=== PATIENT | female | born 1945 | race Caucasian/White ===

== ENCOUNTER 2018-01-12 06:49 | Emergency (ER) | payer MEDICARE ==
[2018-01-12 07:49] LABS: ABS Basophils 0.1 10^3/ul (0-0.2); ABS Eosinophils 0.2 10^3/ul (0-0.6); ABS Lymphocytes 1.2 10^3/ul (1.0-4.8); ABS Monocytes 0.3 10^3/ul (0-0.8); ABS Neutrophils 5.3 10^3/ul (1.5-7.7); ABS Nucleated RBC 0 10^3/ul; Eosinophil % 3.4 % (0-6); Hematocrit 46 % (35-47); Hemoglobin 15.8 g/dl (12.0-16.0); Lymphocyte % 16.4 % (25-47); Mean Corpuscular HGB Conc 35 g/dl (31-36); Mean Corpuscular Hemoglobin 32 pg (27-31); Mean Corpuscular Volume 92 fL (80-97); Mean Platelet Volume 8.5 um3 (7.4-10.4); Nucleated Red Blood Cells % 0.1; Platelet Count 197 10^3/ul (150-450); Red Blood Count 4.97 10^6/ul (4.00-5.40); Red Cell Distribution Width 13 % (10.5-15); White Blood Count 7.1 10^3/ul (3.5-10.8)
[2018-01-12 08:08] LABS: EGFR Non-African American 71.1 (>60)
--- NOTE | 2018-01-12 08:11 | RAD ---
HISTORY: Chest pain COMPARISONS: February 03, 2013 VIEWS: 1: frontal portable view of the chest at 7:47 AM FINDINGS: LINES AND TUBES: None. CARDIOMEDIASTINAL SILHOUETTE: The cardiomediastinal silhouette is normal for portable technique. PLEURA: The costophrenic angles are sharp. No pleural abnormalities are noted. LUNG PARENCHYMA: The lungs are clear. ABDOMEN: The upper abdomen is clear. There is no subphrenic gas. BONES AND SOFT TISSUES: No bone or soft tissue abnormalities are noted. IMPRESSION: NO ACTIVE CARDIOPULMONARY DISEASE.
[2018-01-12 12:57] VITALS: BP 123/67
--- NOTE | 2018-01-12 16:57 | ED ---
Kael Culp Angela, scribed for Sebastian Hsieh MD on 01/12/18 at 0734 . Hypertension - HPI Summary HPI Summary: This pt is a 73 y/o female presenting to [facility] for worsening cough and SOB, and hypertension noted today. Pt reports she has felt SOB for the past week now. She states her coughing has been worsening and is now productive with yellow sputum. This morning at 05:30 she woke up feeling heart palpitations and SOB. She also notes loose stools began last night. Additionally she reports pain on her left shoulder, but she attributes it to her coughing and recent heavy lifting, stating "it feels like all muscle." Pt has hx of fibromyalgia and "it always hurts all over." Her PCP is in [facility]. Pt is not on antihypertensive medications. PMHx includes migraine, arthritis, fibromyalgia, hypothyroidism. She is on hypothyroid medications. - History of Current Complaint Chief Complaint: EDHypertension Stated Complaint: CHEST PAIN Time Seen by Provider: 01/12/18 07:07 Hx Obtained From: Patient Onset/Duration: Started Hours Ago, Still Present Timing: Lasting Hours Aggravating Factor(s): Nothing Alleviating Factor(s): Nothing Associated Signs & Symptoms: SOB, Other: - POS: left shoulder pain, palpitations , cough - Allergies/Home Medications Allergies/Adverse Reactions: Allergies Allergy/AdvReac Type Severity Reaction Status Date / Time ciprofloxacin Allergy Severe Difficulty Verified 01/12/18 07:31 Breathing guaifenesin Allergy Severe Difficulty Verified 01/12/18 07:31 Breathing magnesium salicylate Allergy Severe Difficulty Verified 01/12/18 07:32 Breathing Penicillins Allergy Severe Difficulty Verified 01/12/18 07:34 Breathing Sulfa (Sulfonamide Allergy Severe Difficulty Verified 01/12/18 07:34 Antibiotics) Breathing Iodinated Contrast- Oral and Allergy Intermediate Unknown Verified 01/12/18 07: 36 IV Dye Reaction Details ondansetron Allergy Intermediate Itching Verified 01/12/18 07:35 ASPARTAME Allergy Severe Difficulty Uncoded 01/12/18 07:30 Breathing ASPIRIN Allergy Severe Difficulty Uncoded 01/12/18 07:30 Breathing NSAIDS Allergy Severe Difficulty Uncoded 01/12/18 07:33 Breathing Home Medications: Home Medications Levothyroxine TAB* [Synthroid TAB*] 88 mcg PO DAILY 01/12/18 [History Confirmed 01/12/18] Multivitamins/Minerals TAB* [Theragran/minerals TAB*] 1 tab PO DAILY 01/12/18 [ History Confirmed 01/12/18] Mv-Mn/C/Glutamin/Lysin/Gowx698 [Airborne] 1 zane PO DAILY PRN 01/12/18 [History Confirmed 01/12/18] Zyflamend 1 tab PO BID 01/12/18 [History Confirmed 01/12/18] PMH/Surg Hx/FS Hx/Imm Hx Endocrine/Hematology History: Reports: Hx Thyroid Disease - HYPO Denies: Hx Anticoagulant Therapy, Hx Diabetes Cardiovascular History: Reports: Hx Hypercholesterolemia, Hx Syncope Denies: Hx Hypertension, Hx Pacemaker/ICD Respiratory History: Reports: Hx Asthma, Other Respiratory Problems/Disorders - URI in April 2012 Denies: Hx Chronic Obstructive Pulmonary Disease (COPD) GI History: Reports: Hx Gastroesophageal Reflux Disease, Other GI Disorders - diarrhea and nausea, no emesis History: Reports: Hx Kidney Infection - many over the years and as a child Denies: Hx Renal Disease Musculoskeletal History: Reports: Hx Arthritis, Hx Fibromyalgia Sensory History: Reports: Hx Contacts or Glasses, Hx Hearing Problem - no high pitched hearing tones Opthamlomology History: Reports: Hx Contacts or Glasses Neurological History: Reports: Hx Migraine Denies: Hx Dementia, Hx Seizures Psychiatric History: Denies: Hx Substance Abuse - Surgical History Surgery Procedure, Year, and Place: HYSTERECTOMY, APPENDECTOMY, Tubal Ligation, left breast biopsy Hx Anesthesia Reactions: No - Immunization History Date of Tetanus Vaccine: yes unsure of the date Date of Influenza Vaccine: allergic Infectious Disease History: No Infectious Disease History: Denies: Hx Clostridium Difficile, Hx Hepatitis, Hx Human Immunodeficiency Virus (HIV), Hx Shingles, Hx Tuberculosis, Traveled Outside the [place] in Last 30 Days - Family History Known Family History: Positive: Hypertension - Father Family History: Mother and father: CVAs - Social History Alcohol Use: None Substance Use Type: Reports: None Smoking Status (MU): Never Smoked Tobacco Review of Systems Negative: Fever, Chills Cardiovascular: Other - hypertension Positive: Palpitations Positive: Shortness Of Breath, Cough Gastrointestinal: Other - Loose stools Musculoskeletal: Other - left shoulder pain All Other Systems Reviewed And Are Negative: Yes Physical Exam - Summary Physical Exam Summary: Appearance: The patient is well-nourished in no acute distress and in no acute pain. Skin: The skin is warm and dry and skin color reflects adequate perfusion. HEENT: The head is normocephalic and atraumatic. The pupils are equal and reactive. The conjunctivae are clear and without drainage. Nares are patent and without drainage. Mouth reveals moist mucous membranes and the throat is without erythema and exudate. The external ears are intact. The ear canals are patent and without drainage. The tympanic membranes are intact. Neck: the neck is supple with full range of motion and non-tender. There are no carotid bruits. There is no neck vein distension. Respiratory: Chest is non-tender. Lungs are clear to auscultation and breath sounds are symmetrical and equal. Cardiovascular: Heart is regular rate and rhythm. There is no murmur or rub auscultated. There is no peripheral edema and pulses are symmetrical and equal. Abdomen: The abdomen is soft and non-tender. There are normal bowel sounds heard in all four quadrants and there is no organomegaly palpated. Musculoskeletal: There is no back tenderness noted. Extremities are non-tender with full range of motion. There is good capillary refill. There is no peripheral edema or calf tenderness elicited. Neurological: Patient is alert and oriented to person, place and time. Psychiatric: The patient has an appropriate affect and does not exhibit any anxiety or depression. Triage Information Reviewed: Yes Vital Signs On Initial Exam: Initial Vitals Temp Pulse Resp BP Pulse Ox 98.3 F 78 15 200/108 95 01/12/18 06:55 01/12/18 06:55 01/12/18 06:55 01/12/18 06:55 01/12/18 06:55 Vital Signs Reviewed: Yes Diagnostics - Vital Signs Vital Signs Temp Pulse Resp BP Pulse Ox 01/12/18 06:55 98.3 F 78 15 200/108 95 - Laboratory Lab Results: Lab Results 01/12/18 01/12/18 01/12/18 Range/Units 07:35 07:35 07:35 WBC 7.1 (3.5-10.8) 10^3/ul RBC 4.97 (4.00-5.40) 10^6/ul Hgb 15.8 (12.0-16.0) g/dl Hct 46 (35-47) % MCV 92 (80-97) fL MCH 32 H (27-31) pg MCHC 35 (31-36) g/dl RDW 13 (10.5-15) % Plt Count 197 (150-450) 10^3/ul MPV 8.5 (7.4-10.4) um3 Neut % (Auto) 74.6 (38-83) % Lymph % (Auto) 16.4 L (25-47) % Alpine % (Auto) 4.8 (0-7) % Eos % (Auto) 3.4 (0-6) % Baso % (Auto) 0.8 (0-2) % Absolute Neuts (auto) 5.3 (1.5-7.7) 10^3/ul Absolute Lymphs (auto) 1.2 (1.0-4.8) 10^3/ul Absolute Monos (auto) 0.3 (0-0.8) 10^3/ul Absolute Eos (auto) 0.2 (0-0.6) 10^3/ul Absolute Basos (auto) 0.1 (0-0.2) 10^3/ul Absolute Nucleated RBC 0 10^3/ul Nucleated RBC % 0.1 D-Dimer, Quantitative 321 H (Less Than 230) ng/mL Sodium 136 (135-145) mmol/L Potassium 4.2 (3.5-5.0) mmol/L Chloride 99 L (101-111) mmol/L Carbon Dioxide 28 (22-32) mmol/L Anion Gap 9 (2-11) mmol/L BUN 12 (6-24) mg/dL Creatinine 0.79 (0.51-0.95) mg/dL Est GFR ( Amer) 86.1 (>60) Est GFR (Non-Af Amer) 71.1 (>60) BUN/Creatinine Ratio 15.2 (8-20) Glucose 260 H (70-100) mg/dL Lactic Acid (0.5-2.0) mmol/L Calcium 9.6 (8.6-10.3) mg/dL Total Bilirubin 0.40 (0.2-1.0) mg/dL AST 17 (13-39) U/L ALT 21 (7-52) U/L Alkaline Phosphatase 54 (34-104) U/L Troponin I 0.00 (<0.04) ng/mL B-Natriuretic Peptide ( - 100) pg/mL Total Protein 7.3 (6.4-8.9) g/dL Albumin 4.5 (3.2-5.2) g/dL Globulin 2.8 (2-4) g/dL Albumin/Globulin Ratio 1.6 (1-3) TSH 6.54 H (0.34-5.60) mcIU/mL 01/12/18 01/12/18 01/12/18 Range/Units 07:35 07:35 10:19 WBC (3.5-10.8) 10^3/ul RBC (4.00-5.40) 10^6/ul Hgb (12.0-16.0) g/dl Hct (35-47) % MCV (80-97) fL MCH (27-31) pg MCHC (31-36) g/dl RDW (10.5-15) % Plt Count (150-450) 10^3/ul MPV (7.4-10.4) um3 Neut % (Auto) (38-83) % Lymph % (Auto) (25-47) % Alpine % (Auto) (0-7) % Eos % (Auto) (0-6) % Baso % (Auto) (0-2) % Absolute Neuts (auto) (1.5-7.7) 10^3/ul Absolute Lymphs (auto) (1.0-4.8) 10^3/ul Absolute Monos (auto) (0-0.8) 10^3/ul Absolute Eos (auto) (0-0.6) 10^3/ul Absolute Basos (auto) (0-0.2) 10^3/ul Absolute Nucleated RBC 10^3/ul Nucleated RBC % D-Dimer, Quantitative (Less Than 230) ng/mL Sodium (135-145) mmol/L Potassium (3.5-5.0) mmol/L Chloride (101-111) mmol/L Carbon Dioxide (22-32) mmol/L Anion Gap (2-11) mmol/L BUN (6-24) mg/dL Creatinine (0.51-0.95) mg/dL Est GFR ( Amer) (>60) Est GFR (Non-Af Amer) (>60) BUN/Creatinine Ratio (8-20) Glucose (70-100) mg/dL Lactic Acid 2.0 (0.5-2.0) mmol/L Calcium (8.6-10.3) mg/dL Total Bilirubin (0.2-1.0) mg/dL AST (13-39) U/L ALT (7-52) U/L Alkaline Phosphatase (34-104) U/L Troponin I 0.00 (<0.04) ng/mL B-Natriuretic Peptide 53 ( - 100) pg/mL Total Protein (6.4-8.9) g/dL Albumin (3.2-5.2) g/dL Globulin (2-4) g/dL Albumin/Globulin Ratio (1-3) TSH (0.34-5.60) mcIU/mL Result Diagrams: 01/12/18 07:35 01/12/18 07:35 Lab Statement: Any lab studies that have been ordered have been reviewed, and results considered in the medical decision making process. - Radiology Chest XR Xray Interpretation: No Acute Changes - IMPRESSION: No active cardiopulmonary disease. Dr. Hsieh has reviewed this report. Radiology Interpretation Completed By: Radiologist - EKG 06:57 Cardiac Rate: NL - at 74 bpm EKG Rhythm: Sinus Rhythm EKG Interpretation: LAD. EKG Comparison: No Significant Change - from prior on 02/05/14. 10:44 Cardiac Rate: NL - at 78 bpm EKG Rhythm: Sinus Rhythm EKG Interpretation: LAD. EKG Comparison: No Significant Change - unchanged from prior EKG at 06:57 today. Hypertension Course/Dx - Course Course Of Treatment: Ms. Anne presented with a concern for a cough that has been going on for couple weeks and has been getting steadily worse. She states that there is only one antibiotic, cefuroxime, but she is able to tolerate and therefore her PCP tends to start it for her early when she has a productive cough. She also has vague complaints of diffuse pains and chest pains and shortness of breath. Her workup here was negative aside from a very slightly elevated d-dimer which is nonspecific. - Diagnoses Provider Diagnoses: Bronchitis, Chest pain Discharge - Sign-Out/Discharge Documenting (check all that apply): Discharge/Admit/Transfer - Discharge - Discharge Plan Condition: Stable Disposition: HOME Prescriptions: ceFUROXime TAB(*) [Ceftin TAB 250 MG(*)] 250 mg PO BID #20 tab Patient Education Materials: Chest Pain (ED), Acute Bronchitis (ED) Referrals: Neal ARITA,Riley Rosales [Primary Care Provider] - Additional Instructions: Please follow up with your primary care provider in 2-3 days. RETURN TO THE ED FOR ANY WORSENING SYMPTOMS. - Billing Disposition and Condition Condition: STABLE Disposition: Home The documentation as recorded by the Kael august Angela accurately reflects the service I personally performed and the decisions made by me, Sebastian Hsieh MD.
== END 2018-01-12 12:55 | disposition home or self-care (01) ==
LOC: ED 06:49
DX: J40 Bronchitis, not specified as acute or chronic (principal); R07.9 Chest pain, unspecified; R06.02 Shortness of breath; M25.512 Pain in left shoulder; R00.2 Palpitations; R05 Cough; Z88.0 Allergy status to penicillin; Z88.8 Allergy status to other drugs, medicaments and biological substances
CPT/HCPCS: 36415; 71045; 80053; 83605; 83880; 84443; 84484; 85025; 85379; 93005; 99283

== ENCOUNTER 2018-08-27 07:21 | Emergency (ER) | payer MEDICARE ==
--- NOTE | 2018-08-27 07:58 | ED ---
Complex/Multi-Sys Presentation - HPI Summary HPI Summary: A 73 y/o F presents to ED with c/o nausea and diarrhea onset last night. This morning at 0430, she was in bed and bent over to greens picker her dog, when she suddenly felt as though she might pass out, and had some mild room spinning. Pt has PMHx: vertigo, with her last episode a few months ago. 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 Associated sx: mild CP on L-side and radiating to her L-shoulder. She states it feels muscular, it does not feel sharp or tight. She also has mild abd pain related to being bloated. Denies: vomiting, ROY, fever, cough, bloody stool. Denies PMHx: GI bleed, ulcers. Her PCP is in [place]. Surgeries include an appy and partial hysterectomy. Her gallbladder and ovaries are intact. No C- sections. She did not get a flu shot this year. Vitals in room: HR: 74 bpm; BP: 214/114. She is not on medication for HTN, and states it is normally OK. 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 Negative: Headache, Cough, Vomiting, Fever, Other - pos : L shoulder pain; bloating. neg: bloody stool - Allergies/Home Medications Allergies/Adverse Reactions: Allergies Allergy/AdvReac Type Severity Reaction Status Date / Time ciprofloxacin Allergy Severe Difficulty Verified 08/27/18 07:28 Breathing guaifenesin Allergy Severe Difficulty Verified 08/27/18 07:28 Breathing magnesium salicylate Allergy Severe Difficulty Verified 08/27/18 07:28 Breathing Penicillins Allergy Severe Difficulty Verified 08/27/18 07:28 Breathing Sulfa (Sulfonamide Allergy Severe Difficulty Verified 08/27/18 07:28 Antibiotics) Breathing Iodinated Contrast- Oral and Allergy Intermediate Unknown Verified 08/27/18 07: 28 IV Dye Reaction Details ondansetron Allergy Intermediate Itching Verified 08/27/18 07:28 ASPARTAME Allergy Severe Difficulty Uncoded 08/27/18 07:28 Breathing ASPIRIN Allergy Severe Difficulty Uncoded 08/27/18 07:28 Breathing NSAIDS Allergy Severe Difficulty Uncoded 08/27/18 07:28 Breathing PMH/Surg Hx/FS Hx/Imm Hx Previously Healthy: No Endocrine/Hematology History: Reports: Hx Thyroid Disease - HYPO Denies: Hx Anticoagulant Therapy, Hx Diabetes Cardiovascular History: Reports: Hx Hypercholesterolemia, Hx Syncope Denies: Hx Hypertension, Hx Pacemaker/ICD Respiratory History: Reports: Hx Asthma, Other Respiratory Problems/Disorders Denies: Hx Chronic Obstructive Pulmonary Disease (COPD) GI History: Reports: Hx Gastroesophageal Reflux Disease, Other GI Disorders - diarrhea and nausea, no emesis History: Reports: Hx Kidney Infection - many over the years and as a child Denies: Hx Renal Disease Musculoskeletal History: Reports: Hx Arthritis, Hx Fibromyalgia Sensory History: Reports: Hx Contacts or Glasses, Hx Hearing Problem - no high pitched hearing tones Opthamlomology History: Reports: Hx Contacts or Glasses Neurological History: Reports: Hx Migraine Denies: Hx Dementia, Hx Seizures Psychiatric History: Denies: Hx Substance Abuse - Surgical History Surgery Procedure, Year, and Place: HYSTERECTOMY, APPENDECTOMY, Tubal Ligation, left breast biopsy Hx Anesthesia Reactions: No - Immunization History Date of Tetanus Vaccine: yes unsure of the date Date of Influenza Vaccine: allergic Infectious Disease History: No Infectious Disease History: Denies: Hx Clostridium Difficile, Hx Hepatitis, Hx Human Immunodeficiency Virus (HIV), Hx Shingles, Hx Tuberculosis, Traveled Outside the [place] in Last 30 Days - Family History Known Family History: Positive: Hypertension - Father Family History: Mother and father: CVAs - Social History Occupation: Retired Lives: With Family Alcohol Use: None Hx Substance Use: No Substance Use Type: Reports: None Hx Tobacco Use: No Smoking Status (MU): Never Smoked Tobacco Review of Systems Negative: Fever Positive: Chest Pain Negative: Cough Positive: Abdominal Pain - due to bloatedness, Diarrhea, Nausea. Negative: Vomiting, Other - neg: bloody stool Positive: no symptoms reported Musculoskeletal: Other - pos: L shoulder pain Skin: Negative Neurological: Other - pos: room-spinning dizziness Positive: Syncope - near-syncope. Negative: Headache Psychological: Normal All Other Systems Reviewed And Are Negative: Yes Physical Exam - Summary Physical Exam Summary: Appearance: Ill-appearing, moderate pain distress, obese Skin: Warm, color reflects adequate perfusion, dry Head: Normal Head/Face inspection, atraumatic Eyes: Conjunctiva clear, PERRL, EOMI, no nystagmus ENT: Normal inspection, TM's clear, Pharynx clear Neck: Supple, no nodes, no JVD Respiratory: Lungs clear, normal breath sounds, no respiratory distress Cardio: RRR, No murmur, pulses normal, brisk capillary refill Abdomen: Soft, mild diffuse abd tenderness, no guarding, no rebound, no masses, non-distended Bowel sounds: Present Musculoskeletal: Strength Intact/ROM intact, no calf tenderness, no edema. Psychological: Normal Neuro: Alert, muscle tone normal, no focal deficit Triage Information Reviewed: Yes Vital Signs On Initial Exam: Initial Vitals Temp Pulse Resp BP Pulse Ox 97.3 F 72 16 211/105 94 08/27/18 07:25 08/27/18 07:25 08/27/18 07:25 08/27/18 07:25 08/27/18 07:25 Vital Signs Reviewed: Yes Diagnostics - Vital Signs Vital Signs Temp Pulse Resp BP Pulse Ox 08/27/18 07:25 97.3 F 72 16 211/105 94 - Laboratory Result Diagrams: 08/27/18 08:58 08/27/18 08:58 Lab Statement: Any lab studies that have been ordered have been reviewed, and results considered in the medical decision making process. - CT A/P CT CT Interpretation Completed By: Radiologist Summary of CT Findings: IMPRESSION: #. No etiology for diarrhea evident. #. Post appendectomy. #. No acute abdominal pelvic pathologic process evident. ED provider has reviewed this report. - EKG 0754 Cardiac Rate: NL - 66 bpm EKG Rhythm: Sinus Rhythm ST Segment: Non-Specific Ectopy: None EKG Comparison: No Significant Change - compared with EKG on 01/12/18. Summary of EKG Findings: An EKG at 0754 reveals NSR at 66 bpm, 1st degree AV block, LAD, LBBB. No acute changes. Re-Evaluation - Re-Evaluation 1 Re-Evaluation Time: 10:28 Change: Improved Comment: Pt is not having CP, SOB, nor diarrhea. BP at home was 210/110. She took it due to the vertigo sx (and her has HTN, which is why they had a home cuff.) She denies DM. At bedside, her BP is 154/90 2 Re-Evaluation Time: 11:33 Change: Unchanged Comment: Discussing plans to discharge. BP is 141/91. She denies ROY, dizziness, chest pain. Complex Multi-Symp Course/Dx Course Of Treatment: Pt is a 73 y/o F presenting with nausea and diarrhea onset last night. This morning at 0430, she was in bed and bent over to greens picker her dog, when she suddenly felt as though she might pass out, and had some mild room spinning. Pt has PMHx: vertigo, with her last episode a few months ago. 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 Associated sx: mild CP on L-side and radiating to her L- shoulder. The CP described as muscular, denies feeling sharp or tight. She also has mild abd pain related to being bloated. Denies: vomiting, ROY, fever, cough, bloody stool. Denies PMHx: GI bleed, ulcers. Her PCP is in [place]. She did not get a flu shot this year. Allergies noted, high blood pressure noted. Pt medications reviewed this visit. Lab work shows elevated RBC, Hgb, Hct, BUN/C ratio: 21.0, and glucose: 326. UA results shows 3+ glucose. A/P CT shows "No etiology for diarrhea evident. Post appendectomy. No acute abdominal pelvic pathologic process evident." An EKG at 0754 reveals NSR at 66 bpm, 1st degree AV block, LAD, LBBB. No acute changes. No changes compared with EKG on . Consulted with Dr. Peralta, hospitalist, at 1035, who says she is OK for D/ C and recommends starting her on Amlodipine 10mg QD, Metformin 500mg BID, Diabeta 5mg QD. And to f/u with PCP in 4 days. - Diagnoses Provider Diagnoses: Diarrhea, Uncontrolled blood glucose, Polycythemia, Elevated BP without diagnosis of hypertension, Diabetes mellitus, new onset - Physician Notifications Discussed Care Of Patient With: Valentin Peralta - hospitalist Time Discussed With Above Provider: 10:40 Instructed by Provider To: Other - Patient is OK for discharge. Recommend starting her on HTN and DM medications: Amlodipine 10mg QD, Metformin 500mg BID , Diabeta 5mg QD. F/u in 4 days with PCP. Discharge - Sign-Out/Discharge Documenting (check all that apply): Patient Departure - D/C Patient Received Moderate/Deep Sedation with Procedure: No - Discharge Plan Condition: Stable Disposition: HOME Prescriptions: amLODIPine TAB* [Norvasc 5 mg TAB*] 10 mg PO DAILY #30 tab glyBURIDE TAB* [Diabeta TAB*] 5 mg PO DAILY #30 tab metFORMIN* [Glucophage 500 MG TAB *] 500 mg PO BID #60 tab Patient Education Materials: Type 2 Diabetes in Adults: New Diagnosis (ED), Acute Diarrhea (ED), Hypertension in the Older Adult (ED) Referrals: [facility] [Outside] - 2 Days Session Abelardo DUBOSE [Primary Care Provider] - As Soon As Possible Additional Instructions: RETURN TO THE EMERGENCY DEPARTMENT FOR CHANGING OR WORSENING SYMPTOMS. Your blood pressure reading today was 214/114, which is HYPERTENSIVE. Follow-up with bAelardo Mosquera, your primary care provider, within 4 weeks for blood pressure readings and further evaluation. - Billing Disposition and Condition Condition: STABLE Disposition: Home - Attestation Statements Document Initiated by Geraldoibe: Yes Documenting Scribe: Jerilyn Casillas Provider For Whom Scribe is Documenting (Include Credential): Dr. Kateryna Singh MD Scribe Attestation: Jerilyn Culp scribed for Dr. Kateryna Singh MD on 08/31/18 at 2314. Scribe Documentation Reviewed: Yes Provider Attestation: The documentation as recorded by the Jerilyn august accurately reflects the service I personally performed and the decisions made by , Dr. Kateryna Singh MD Status of Scribe Document: Viewed
[2018-08-27 09:04] LABS: Urine Appearance Clear; Urine Bilirubin Negative (Negative); Urine Blood Negative (Negative); Urine Color Colorless; Urine Glucose 3+(>=500 mg/dL) (Negative); Urine Ketones Negative (Negative); Urine Nitrite Negative (Negative); Urine Protein Negative (Negative); Urine Specific Gravity 1.002 (1.010-1.030); Urine Urobilinogen Negative (Negative)
[2018-08-27 09:23] LABS: ABS Basophils 0.1 10^3/ul (0-0.2); ABS Eosinophils 0.1 10^3/ul (0-0.6); ABS Lymphocytes 1.1 10^3/ul (1.0-4.8); ABS Monocytes 0.2 10^3/ul (0-0.8); ABS Neutrophils 5.5 10^3/ul (1.5-7.7); ABS Nucleated RBC 0 10^3/ul; Eosinophil % 1.5 %; Hematocrit 50 % (35-47); Hemoglobin 17.1 g/dl (12.0-16.0); Lymphocyte % 15.3 %; Mean Corpuscular HGB Conc 34 g/dl (31-36); Mean Corpuscular Hemoglobin 31 pg (27-31); Mean Corpuscular Volume 92 fL (80-97); Mean Platelet Volume 8.8 fL (7.4-10.4); Nucleated Red Blood Cells % 0; Platelet Count 201 10^3/ul (150-450); Red Blood Count 5.44 10^6/ul (4.00-5.40); Red Cell Distribution Width 13 % (10.5-15)
[2018-08-27 09:35] LABS: Albumin 4.7 g/dL (3.2-5.2); Albumin/Globulin Ratio 1.6 (1-3); C Reactive Protein 3.5 mg/L (<8.01); Calcium 9.8 mg/dL (8.6-10.3); EGFR African American 83.6 (>60); EGFR Non-African American 69.1 (>60); Globulin 2.9 g/dL (2-4); Magnesium 1.9 mg/dL (1.9-2.7); Potassium 4.2 mmol/L (3.5-5.0); Total Bilirubin 0.5 mg/dL (0.2-1.0); Total Protein 7.6 g/dL (6.4-8.9)
[2018-08-27 09:37] LABS: INR 0.89 (0.77-1.02)
[2018-08-27 09:38] LABS: Activated Partial Thrombo Time 31.3 seconds (26.0-36.3)
[2018-08-27 11:51] VITALS: BP 141/91
== END 2018-08-27 11:50 | disposition home or self-care (01) ==
LOC: ED 07:21
DX: R19.7 Diarrhea, unspecified (principal); E11.9 Type 2 diabetes mellitus without complications; R11.0 Nausea; Z88.0 Allergy status to penicillin; Z88.6 Allergy status to analgesic agent; K21.9 Gastro-esophageal reflux disease without esophagitis; R07.9 Chest pain, unspecified; R55 Syncope and collapse; D75.1 Secondary polycythemia; R03.0 Elevated blood-pressure reading, without diagnosis of hypertension
CPT/HCPCS: 36415; 71045; 74176; 80053; 81003; 82150; 82550; 83036; 83605; 83690; 83735; 83880; 84484; 85025; 85610; 85730; 86140; 93005; 99283

== ENCOUNTER 2018-10-15 12:34 | Inpatient (IN) | payer MEDICARE ==
--- NOTE | 2018-10-15 15:09 | ED ---
Complex/Multi-Sys Presentation - HPI Summary HPI Summary: 73 [facility] F [facility] accompanied by complains of lump on external right labia that began 4-5 days ago and fever that began yesterday. The patient rates the pain 3/10 in severity. Symptoms aggravated by nothing. Symptoms alleviated by nothing. Patient reports headache. She denies decreased appetite, abnormal bowel movements, dark stools, dizziness, bilateral lower extremity edema. Patient was referred to ED from PCP to obtain cultures and to be monitored in case she needs antibiotics. Patient has hx allergies to multiple antibiotics. - History Of Current Complaint Chief Complaint: EDGeneral Time Seen by Provider: 10/15/18 14:56 Hx Obtained From: Patient Onset/Duration: Lasting Days - 4-5, Still Present Timing: Constant Aggravating Factor(s): Nothing Alleviating Factor(s): Nothing Associated Signs And Symptoms: Positive: Other - headache; NEGATIVE: decreased appetite, abnormal bowel movements, dark stools, dizziness, bilateral lower extremity edema. - Allergies/Home Medications Allergies/Adverse Reactions: Allergies Allergy/AdvReac Type Severity Reaction Status Date / Time ciprofloxacin Allergy Severe Difficulty Verified 10/15/18 12:41 Breathing guaifenesin Allergy Severe Difficulty Verified 10/15/18 12:41 Breathing magnesium salicylate Allergy Severe Difficulty Verified 10/15/18 12:41 Breathing Penicillins Allergy Severe Difficulty Verified 10/15/18 12:41 Breathing Sulfa (Sulfonamide Allergy Severe Difficulty Verified 10/15/18 12:41 Antibiotics) Breathing Iodinated Contrast- Oral and Allergy Intermediate Anaphylatic Verified 10/15/18 12:41 IV Dye Shock ondansetron Allergy Intermediate Itching Verified 10/15/18 12:41 aspartame Allergy Difficulty Verified 10/15/18 12:41 Breathing aspirin Allergy Difficulty Verified 10/15/18 12:41 Breathing NSAIDS (Non-Steroidal Allergy Difficulty Verified 10/15/18 12:41 Anti-Inflamma Breathing PMH/Surg Hx/FS Hx/Imm Hx Previously Healthy: No Endocrine/Hematology History: Reports: Hx Thyroid Disease - HYPO Denies: Hx Anticoagulant Therapy, Hx Diabetes Cardiovascular History: Reports: Hx Hypercholesterolemia, Hx Syncope Denies: Hx Hypertension, Hx Pacemaker/ICD Respiratory History: Reports: Hx Asthma, Other Respiratory Problems/Disorders Denies: Hx Chronic Obstructive Pulmonary Disease (COPD) GI History: Reports: Hx Gastroesophageal Reflux Disease, Other GI Disorders - diarrhea and nausea, no emesis History: Reports: Hx Kidney Infection - many over the years and as a child Denies: Hx Renal Disease Musculoskeletal History: Reports: Hx Arthritis, Hx Fibromyalgia Sensory History: Reports: Hx Contacts or Glasses, Hx Hearing Problem - no high pitched hearing tones Opthamlomology History: Reports: Hx Contacts or Glasses Neurological History: Reports: Hx Migraine Denies: Hx Dementia, Hx Seizures Psychiatric History: Denies: Hx Substance Abuse - Surgical History Surgery Procedure, Year, and Place: HYSTERECTOMY, APPENDECTOMY, Tubal Ligation, left breast biopsy Hx Anesthesia Reactions: No - Immunization History Date of Tetanus Vaccine: yes unsure of the date Date of Influenza Vaccine: allergic Infectious Disease History: No Infectious Disease History: Denies: Hx Clostridium Difficile, Hx Hepatitis, Hx Human Immunodeficiency Virus (HIV), Hx Shingles, Hx Tuberculosis, Traveled Outside the in Last 30 Days - Family History Known Family History: Positive: Hypertension - Father Family History: Mother and father: CVAs - Social History Alcohol Use: None Hx Substance Use: No Substance Use Type: Reports: None Hx Tobacco Use: No Smoking Status (MU): Never Smoked Tobacco Review of Systems Positive: Fever Gastrointestinal: Negative - Decreased appetite, abnormal bowel movements, dark stools Positive: other - lump on external right labia Negative: Edema Neurological: Negative - Dizziness All Other Systems Reviewed And Are Negative: Yes Physical Exam - Summary Physical Exam Summary: Constitutional: Somewhat obese, Well-nourished, Alert. (-) Distressed Skin: Warm, Dry HENT: Normocephalic; Atraumatic Eyes: Conjunctiva normal Neck: Musculoskeletal ROM normal neck. (-) JVD, (-) Stridor, (-) Tracheal deviation Cardio: Rhythm regular, rate normal, Heart sounds normal; Intact distal pulses; The pedal pulses are 2+ and symmetric. Radial pulses are 2+ and symmetric. Pulmonary/Chest wall: Effort normal. (-) Respiratory distress, (-) Wheezes, (-) Rales Abd: Soft, (-) tenderness, (-) Distension, (-) Guarding, (-) Rebound Musculoskeletal: (-) Edema Neuro: Alert, Oriented x3 Psych: Mood and affect Normal exam chaperoned by ADRIEL Portillo: There is erythema and swelling to right labia. There is an area of induration going down to rectum. There is significant amount of erythema at vaginal introitus, which is tender and indurated. The induration is approaching perineal region. The erythema is in direct proximity to the rectum. There is no obvious discharge, bleeding from vagina or rectum but the wound and area of induration is undescribed. There is no crepitus, obvious skin breakdown, pimple head, coalescence of where this is going. Triage Information Reviewed: Yes Vital Signs On Initial Exam: Initial Vitals Temp Pulse Resp BP Pulse Ox 99.6 F 96 16 157/85 96 10/15/18 12:35 10/15/18 12:35 10/15/18 12:35 10/15/18 12:35 10/15/18 12:35 Vital Signs Reviewed: Yes Diagnostics - Vital Signs Vital Signs Temp Pulse Resp BP Pulse Ox 10/15/18 14:25 100.6 F 93 20 125/79 100 10/15/18 12:35 99.6 F 96 16 157/85 96 - Laboratory Result Diagrams: 10/15/18 15:34 10/15/18 15:34 Lab Statement: Any lab studies that have been ordered have been reviewed, and results considered in the medical decision making process. - Radiology CXR Radiology Interpretation Completed By: Radiologist Summary of Radiographic Findings: NO EVIDENCE FOR ACUTE DISEASE. ED physician has reviewed this report. - EKG 1633 Summary of EKG Findings: Heart rate is tachycardic. Q waves inferior are old. First degree AVB is also old. Incomplete LBBB. Non STEMI. Complex Multi-Symp Course/Dx Course Of Treatment: 73 year old F from primary care provider to [facility] accompanied by complains of lump on external right labia that began 4-5 days ago and fever that began yesterday. Patient has hx allergies to multiple antibiotics. Patient meets sepsis criteria but we are consciously not giving her 30 ml/kg of fluid because her baseline health status is unlikely to tolerate that much aggressive fluid resuscitation. Spoke with nina Watkins , at 1534, who agrees to come see patient. Dr. Loredo agrees with course of treatment. He agrees to come see patient to decide what to do. Dr. Loredo thinks that patient will ultimately be admitted to hospitalist but will consult on the case. Labs were remarkable for white count 14.[address] Loredo aspirated the area and sent to culture at 1613. He recommends admission to hospitalist. Spoke with [facility]. [facility]ist, at 1630 who requests EKG to follow up with troponin. EKG shows non STEMI. CXR shows NO EVIDENCE FOR ACUTE DISEASE. The patient will be admitted to hospitalist. The patient is agreeable with this plan. - Diagnoses Provider Diagnoses: Cellulitis of perianal region - Physician Notifications Discussed Care Of Patient With: Ajay Loredo Time Discussed With Above Provider: 15:34 Instructed by Provider To: Other - Spoke with nina Watkins, who agrees to come see patient. Dr. Loredo agrees with course of treatment. He agrees to come see patient to decide what to do. Dr. Loredo thinks that patient will ultimately be admitted to hospitalist but will consult on the case. Dr. Loredo aspirated the area and sent to culture at 1613. He recommends admission to hospitalist. Spoke with Dr. [facility] hospitalist, at 1630 who requests EKG to follow up with troponin. Discharge - Sign-Out/Discharge Documenting (check all that apply): Patient Departure - Admit Patient Received Moderate/Deep Sedation with Procedure: No - Discharge Plan Condition: Fair Disposition: ADMITTED TO [facility] Referrals: Session MIGUEL-Abelardo Motley [Primary Care Provider] - - Attestation Statements Document Initiated by Geraldoibe: Yes Documenting Scribe: Patsy Vick Provider For Whom Winston is Documenting (Include Credential): Ajay Abreu MD Scribe Attestation: Patsy Culp, scribed for Ajay Abreu MD on 10/15/18 at 1829. Status of Scribe Document: Ready
[2018-10-15] MEDS ORDERED: Acetaminophen TAB* 325 MG PO ONE (15:18)
[2018-10-15] MEDS ORDERED: Cefepime(*) 1 GM in NS 0.9% 50 ML* 50 ML IVPB ONE (15:23)
[2018-10-15] MEDS ORDERED: Cefepime 1 GM in Dextrose(*) 1 GM/50 ML BAG IV ONE (15:31)
[2018-10-15 15:52] LABS: ABS Basophils 0.1 10^3/ul (0-0.2); ABS Eosinophils 0.2 10^3/ul (0-0.6); ABS Lymphocytes 1.6 10^3/ul (1.0-4.8); ABS Monocytes 0.8 10^3/ul (0-0.8); ABS Neutrophils 11.9 10^3/ul (1.5-7.7); ABS Nucleated RBC 0 10^3/ul; Eosinophil % 1.1 %; Hematocrit 43 % (33-41); Hemoglobin 14.8 g/dL (12.0-16.0); Lymphocyte % 10.7 %; Mean Corpuscular HGB Conc 34 g/dL (31-36); Mean Corpuscular Hemoglobin 31 pg (27-31); Mean Corpuscular Volume 92 fL (80-97); Mean Platelet Volume 8.9 fL (7.4-10.4); Nucleated Red Blood Cells % 0; Platelet Count 200 10^3/uL (150-450); Red Cell Distribution Width 13 % (10.5-15); White Blood Count 14.5 10^3/uL (3.5-10.8)
[2018-10-15] MEDS ORDERED: Vancomycin 1500 MG IV - x ONCE IVPB ONE ×2 (16:00)
[2018-10-15] MEDS ORDERED: Lactated Ringers 1000 ML Bag* 1,000 ML IV SCH (16:00)
[2018-10-15] MEDS ORDERED: Vancomycin(*) 1,000 MG VIAL IVPB SCH (16:00)
[2018-10-15] MEDS ORDERED: Lidocaine 1% INJ* 10 MG/ML 30 ML SDV ONE (16:01)
[2018-10-15 16:07] LABS: Activated Partial Thrombo Time 30.2 seconds (26.0-36.3); INR 1.06 (0.77-1.02)
[2018-10-15 16:14] LABS: ALT 15 U/L (7-52); AST 10 U/L (13-39); Albumin 4.3 g/dL (3.2-5.2); Albumin/Globulin Ratio 1.5 (1-3); Alkaline Phosphatase 58 U/L (34-104); Anion Gap 10 mmol/L (2-11); BUN/Creatinine Ratio 16.5 (8-20); Blood Urea Nitrogen 14 mg/dL (6-24); CO2 Carbon Dioxide 25 mmol/L (22-32); Calcium 9.4 mg/dL (8.6-10.3); Chloride 101 mmol/L (101-111); EGFR African American 79.1 (>60); EGFR Non-African American 65.4 (>60); Globulin 2.8 g/dL (2-4); Glucose 205 mg/dL (70-100); Potassium 3.9 mmol/L (3.5-5.0); Sodium 136 mmol/L (135-145); Total Protein 7.1 g/dL (6.4-8.9)
[2018-10-15] MEDS ORDERED: Lidocaine 1% INJ* 10 MG/ML 30 ML SDV INJ ONE (16:23)
[2018-10-15 16:30] LABS: Troponin I 0.09 ng/mL (<0.04)
[2018-10-15 16:42] LABS: Urine Appearance Clear; Urine Bacteria Absent (Absent); Urine Bilirubin Negative (Negative); Urine Blood 1+ (Negative); Urine Color Yellow; Urine Glucose 1+(50 mg/dL) (Negative); Urine Ketones Trace (Negative); Urine Nitrite Negative (Negative); Urine Protein Negative (Negative); Urine Red Blood Cell Trace(0-2/hpf) (Absent); Urine Specific Gravity 1.009 (1.010-1.030); Urine Urobilinogen Negative (Negative); Urine White Blood Cell Absent (Absent)
[2018-10-15] MEDS ORDERED: Gadoteridol* (CONTRAST) 279.3 MG/ML 10 ML IV ONE (17:00)
[2018-10-15] MEDS ORDERED: NS 0.9% 1000 ML** 2,000 ML IV ONE (17:47)
[2018-10-15] MEDS ORDERED: Al Hydrox/Mg Hydrox/Simet LIQ* 30 ML UDC PO PRN (18:12)
[2018-10-15] MEDS ORDERED: Vancomycin(*) 0 MG in NS 0.9% 250 ML* 250 ML IVPB SCH (19:00)
[2018-10-15] MEDS ORDERED: Vancomycin per Pharmacy* NOTE FOLLOW UP PRN (19:49)
[2018-10-15] MEDS: Enoxaparin(*) 40 MG/0.4 ML SYR SUBCUT SCH (21:01)
[2018-10-15] MEDS ORDERED: Dextrose 50% Syringe 50 ML* 25 GM/50 ML SYRINGE IV PUSH PRN (21:17)
[2018-10-15] MEDS: Cefepime 2 GM in Dextrose(*) 2 GM/50 ML BAG IV SCH (21:59)
--- NOTE | 2018-10-15 22:12 | HP ---
CC: KOBE Marroquin * HISTORY AND PHYSICAL: DATE OF ADMISSION: 10/15/18 PROVIDER: Nadege David NP PRIMARY CARE PROVIDER: KOBE Shay ATTENDING PHYSICIAN WHILE IN THE HOSPITAL: Cherie Hebert MD * (dictated by Nadege David NP) CHIEF COMPLAINT: Fever and vaginal swelling and pain. HISTORY OF PRESENT ILLNESS: Ms. Ackerman is a 73-year-old female with past medical history significant for hyperlipidemia, hypothyroid, fibromyalgia, obesity, diabetes, history of migraines, and osteoarthritis, who presented to the emergency room with complaints of progressively worsening labial swelling and pain. The patient reports that she started having right labial swelling approximately 4 days ago and yesterday, she developed a fever. She made an appointment with her primary care provider, Dr. Mosquera today who sent her to the emergency room for further evaluation. The patient denies chills. She does report fevers. Denies chest pain or edema. Denies any cough or hemoptysis. She does report some mild shortness of breath. She denies any nausea, vomiting, diarrhea, abdominal pain, gross hematuria, dysuria, focal weakness, or sensory loss. Denies any visual complaints, dysphagia, arthralgias , myalgias, or rashes. She does complain of redness or perineal swelling. Denies any psychosis or anxiety. PAST MEDICAL HISTORY: 1. Hyperlipidemia. 2. Hypothyroid. 3. Fibromyalgia. 4. Obesity. 5. Diabetes, newly diagnosed. 6. Migraines. 7. Osteoarthritis. PAST SURGICAL HISTORY: 1. Hysterectomy. 2. Appendectomy. 3. Tubal ligation. HOME MEDICATIONS: 1. Metformin 500 mg p.o. b.i.d. 2. Levothyroxine 88 mcg p.o. daily. 3. Tylenol as needed for pain. ALLERGIES: 1. CIPRO. 2. GUAIFENESIN. 3. MAGNESIUM SALICYLATE. 4. PENICILLIN. 5. SULFA. 6. IODINATED CONTRAST, ORAL and IV. 7. ZOFRAN. 8. ASPARTAME. 9. ASPIRIN. 10. NSAIDS. FAMILY HISTORY: Mother and father both with a history of CVAs. Diabetes: Son and daughter both are diabetics. Cancer: Daughter with a history of breast cancer. SOCIAL HISTORY: Denies any tobacco, alcohol, or illicit drug use. She is retired. She lives with her . Surrogate decision maker in the event she is unable to make her own decisions is her , Abelardo Ackerman, his phone number is . She is a full code. REVIEW OF SYSTEMS: A 14-point review of systems was completed. All pertinent positives are mentioned in the HPI, all others are negative. PHYSICAL EXAMINATION GENERAL: At this time, Ms. Ackerman is a 73-year-old female. She is alert and oriented, sitting on the stretcher in the emergency room. She does not appear to be in any acute distress. Her cheeks are flushed. VITAL SIGNS: Temperature is 100.6, heart rate 101, respirations are 16, O2 saturation 98% on room air, blood pressure 147/75. HEENT: Head is atraumatic, normocephalic. Eyes: EOMs are intact. Sclerae are anicteric and not pale. Oral mucosa appeared to be moist. NECK: Supple. LUNGS: Clear to auscultation bilaterally. No wheezes, rales, or rhonchi. CARDIAC: S1, S2. Regular rate and rhythm. No murmurs, rubs, or gallops. She is tachycardic. ABDOMEN: Soft and nontender. Bowel sounds are present x4. EXTREMITIES: Pedal pulses are +2 bilaterally. She is able to move all 4 extremities with 5/5 strength. NEUROLOGIC: She is awake, alert, oriented x3. Speech is clear. Thought process is intact. There are no gross focal deficits. SKIN: She has erythema noted to her perineum. Right labia majora with edema, erythema, firm to the touch, extends suprapubically to posterior perineum. Tender to touch, hot to touch. DIAGNOSTIC STUDIES/ LAB DATA: WBCs are 14.5, RBCs 4.70, hemoglobin 14.8, hematocrit was 43, platelet count was 200. INR was 1.06. APTT was 30.2. Sodium 136, potassium 3.9, chloride 101, carbon dioxide was 25, anion gap was 10 , BUN was 14, creatinine 0.85, glucose is 205. Lactic acid 1.1. Calcium 9.4. Total bilirubin 0.60. ASTs were 10, ALTs were 15, alkaline phosphatase was 58. Troponin was 0.09. Urine color was yellow, clear, pH was 6.0, specific gravity 1.009, urine protein was negative, urine ketones were trace, blood was 1 +; nitrites, bilirubin, urobilinogen, leukocyte esterase were negative; wbc's were absent, rbc's were trace, bacteria was absent, glucose was 1+. She had a chest x-ray, radiologist's impression: No evidence of acute disease. She had an electrocardiogram, which showed sinus tachycardia at a rate of 102, no ST or T wave changes. She had an MRI of the pelvis without contrast, radiologist's impression: Edema within the perineum to the right of the midline consistent with cellulitis. There is a 0.5 cm area suggestive of a small abscess. There is no appreciable intraperitoneal extension. ASSESSMENT AND PLAN: Ms. Ackerman is a 73-year-old female with a past medical history significant for hyperlipidemia, hypothyroid, obesity, fibromyalgia, diabetes, migraines, osteoarthritis who presented to the emergency room with complaints of erythema, swelling to her perineum, as well as fevers, who is found to have right labia majora cellulitis. She will be admitted inpatient for : 1. Sepsis related to right labia majora cellulitis. The patient will receive 30 cc/kg normal saline IV fluids. She has had blood cultures. She had a wound aspirate culture performed by Dr. Loredo that is currently pending. She has a urine that is also currently pending. Blood cultures are currently pending. She did receive vancomycin and cefepime in the emergency room. We will continue vancomycin and cefepime at 2 g q.12 hours. She can have Tylenol as needed for fever. Her lactic acid was within normal limits. Dr. Loredo from Surgery has been consulted on this case. 2. Diabetes. I will place her on fingersticks and lispro sliding scale. I will hold her metformin at this time. 3. Hypothyroid. She will continue on levothyroxine 88 mcg p.o. daily. 4. DVT prophylaxis. I will place her on Lovenox subcu. 5. FEN. She can have a consistent carb diet. 6. Code status. She is a full code. TIME SPENT: Time spent on this admission was approximately 60 minutes; greater than half the time was spent at the bedside reviewing events leading thus far to her hospitalization, performing my physical exam, and reviewing my plan of care. I have discussed this with my attending, Dr. Cherie Hebert; she is in agreement with my plan. NADEGE DAVID, IMPORT DISPATCHER [id number]/[facility] #: [id number] [facility] HOSPITALChristiano
--- NOTE | 2018-10-15 23:27 | PRO ---
CC: Abelardo Mosquera, [facility] * DATE OF PROCEDURE/CONSULT: 10/15/18 - ROOM #433 SURGEON: Ajay Loredo MD. PRE-OP DIAGNOSIS: Cellulitis of right labia/perineum. POST-OP DIAGNOSIS: Cellulitis of right labia/perineum. OPERATIVE PROCEDURE: Aspiration of right labia/perineum. HISTORY: The patient is a 73-year-old obese diabetic female who has had increasing pain in the right perineum and labia for the last few days. Yesterday, she started to develop a fever, today because worse, so she presented to the emergency room. She has no injury or trauma to the area that she knows about. She has not had this type of thing before. She points to the labia on the right as the area where it started and then it has now spread posteriorly into the perineum and perianal area and anteriorly up to the right inguinal area, and there has never been any drainage. On examination, she is a well-developed, well-nourished, obese female consistent with stated age. She does not appear acutely ill. Her face is a little bit flushed. She has a temperature of 100.6 here in the emergency room, tachycardic to the low 100s, O2 saturation is low to mid 90s on room air, blood pressure 126/71, respirations 20 and unlabored. Abdomen is obese and soft, and nontender. There is some erythema starting on the right side of the mons pubis extending down into the labia. The labia on the right side is edematous and almost twice the size of that on the left with erythema and induration. The induration is greater in the posterior aspect of the labia, and the erythema and induration extends into the perineum, and then posteriorly in the perineum, there is erythema without induration and the erythema extends to within about 2 cm of the anus. On palpation, there is tenderness throughout the labia and at the posterior labial edge on to the perineum. There is no perianal tenderness. There is no tenderness around the anal sphincter and no tenderness with squeezing of the anal sphincter. There is no real tenderness over the mons pubis. Examining the internal aspect of the labia does not reveal any lesions or any fluctuance nor any areas that are pointing. DESCRIPTION OF PROCEDURE: I discussed this with her and I think aspiration for culture would be useful and I did discuss this with her, and she is agreeable to this approach. Therefore, the area was prepped with alcohol, a small wheal of lidocaine was placed, and an 18-gauge needle was used to aspirate the right posterior labia for a little bit of blood and cloudy material. This was sent for culture. Bandage was placed. She tolerated this well. IMPRESSION: A 73-year-old obese diabetic female with right labial cellulitis without evidence of a discrete drainable collection or any fluctuance. She has a severe anaphylactic allergy to CT contrast and therefore is not a candidate for a CAT scan. I think CAT scan without contrast would not be an optimal study. I did discuss the case with Dr. Pratt of Radiology who feels that an MRI scan with contrast would be a good test for getting definition of the area, although it is not clear if that can be done today, but instead of this evening, it could conceivably be done in the morning. I did discuss the case with the emergency room physician and with the hospitalist service, and they will be admitting to their service for medical management for antibiotics and management of her cellulitis, and I will follow along on the results of the MRI and go from there. [id number]/[facility] #: [id number] MTDChristiano
[2018-10-16] MEDS: Levothyroxine TAB* 88 MCG TAB PO SCH (05:07)
[2018-10-16] MEDS: Acetaminophen TAB* 325 MG PO PRN (05:07)
[2018-10-16] MEDS: Vancomycin(*) 1,000 MG in NS 0.9% 250 ML* 250 ML IVPB SCH ×2 (05:08→15:36)
[2018-10-16 05:53] LABS: ABS Basophils 0.1 10^3/ul (0-0.2); ABS Eosinophils 0.2 10^3/ul (0-0.6); ABS Lymphocytes 1.6 10^3/ul (1.0-4.8); ABS Monocytes 0.6 10^3/ul (0-0.8); ABS Neutrophils 9.5 10^3/ul (1.5-7.7); ABS Nucleated RBC 0 10^3/ul; Hematocrit 42 % (33-41); Hemoglobin 14.1 g/dL (12.0-16.0); Lymphocyte % 13.4 %; Mean Corpuscular HGB Conc 33 g/dL (31-36); Mean Corpuscular Hemoglobin 31 pg (27-31); Mean Corpuscular Volume 93 fL (80-97); Mean Platelet Volume 9.1 fL (7.4-10.4); Nucleated Red Blood Cells % 0; Platelet Count 192 10^3/uL (150-450); Red Blood Count 4.56 10^6 /uL (3.70-4.87); Red Cell Distribution Width 13 % (10.5-15); White Blood Count 12.1 10^3/uL (3.5-10.8)
[2018-10-16 06:10] LABS: BUN/Creatinine Ratio 16.9 (8-20); Calcium 8.9 mg/dL (8.6-10.3); EGFR African American 88.7 (>60); EGFR Non-African American 73.3 (>60); HDL Cholesterol 38.7 mg/dL
--- NOTE | 2018-10-16 08:29 | PN ---
Progress Note - Progress Note Date of Service: 10/16/18 Note: HD#2 Right labial cellulitis Afeb, VS noted Demario po's Voiding Pain decreasing Labia/perineum still with erythema and induration, not much different from yest. No fluctuance C&S prelim--MRSA MRI--cellulitis, poss 0.5 cm abscess Impr: Right labial/perineal cellulits, appears to be MRSA Cont abx per medicine Nothing to drain surgically
[2018-10-16] MEDS: Insulin LISPRO* 1 UNITS UNIT SUBCUT SCH ×3 (08:46→16:56)
[2018-10-16] MEDS: Cefepime 2 GM in Dextrose(*) 2 GM/50 ML BAG IV SCH ×2 (08:46→21:23)
--- NOTE | 2018-10-16 16:28 | ECHO ---
Patient: LISA MILIAN [facility] Rec#: [id number] : 1945 Date: 10/16/2018 Age: 73y Height: 157 cm / 61.8 in Weight: 98 kg / 216.0 lbs Sex: F BSA: 1.97 Room#: 433 Admit Date#: 10/15/2018 Type: Inpatient Referring: HAILEY Reading: Manpreet Colin MD Sales And Service Advisor: Louisa Vizcarra RDCS CC: KOBE Marroquin Transthoracic Echocardiogram Indication: Sepsis BP: 103/67 HR: 93 Rhythm: NSR Findings History: HLD, hypothyroidism, DM, obesity. Technical Comments: The study quality is fair. Completed at 1215. Left Ventricle: The left ventricular chamber size is normal. Mild concentric left ventricular hypertrophy is observed. Global left ventricular wall motion and contractility are within normal limits. There is normal left ventricular systolic function. The estimated ejection fraction is 60-65%. Abnormal left ventricular diastolic function is observed. Abnormal left ventricular diastolic filling is observed, consistent with impaired relaxation. Left Atrium: The left atrial chamber size is normal. Right Ventricle: Moderator Band present. The right ventricle is mild to moderately dilated. The right ventricle wall thickness is mildly increased. The right ventricular global systolic function is low normal. Right Atrium: The right atrium is mildly dilated. Aortic Valve: The aortic valve is trileaflet. The aortic valve leaflets are mildly thickened. There is no evidence of aortic regurgitation. There is no evidence of aortic stenosis. Mitral Valve: There is mitral annular calcification. The mitral valve leaflets are mildly thickened. There is trace to mild mitral regurgitation. There is no evidence of mitral stenosis. Tricuspid Valve: The tricuspid valve leaflets are normal. There is mild tricuspid regurgitation. The right ventricular systolic pressure is estimated at 33 mmHg. There is evidence that pulmonary hypertension may be underestimated. There is no tricuspid stenosis. Pulmonic Valve: The pulmonic valve appears normal. There is trace to mild pulmonic regurgitation. There is no pulmonic stenosis. Pericardium: There is no significant pericardial effusion. A pericardial fat pad is visualized. Aorta: There is no dilatation of the ascending aorta. There is no dilatation of the aortic arch. The aortic root is normal in size. Pulmonary Artery: The main pulmonary artery appears normal. Venous: The inferior vena cava is dilated. There is a greater than 50% respiratory change in the inferior vena cava dimension. Summary: There was not any prior study for comparison. Conclusions Mild concentric left ventricular hypertrophy is observed. The estimated ejection fraction is 60-65%. Abnormal left ventricular diastolic filling is observed, consistent with impaired relaxation. The right ventricle is mild to moderately dilated. The right ventricle wall thickness is mildly increased. The right ventricular global systolic function is low normal. The aortic valve leaflets are mildly thickened. The mitral valve leaflets are mildly thickened. There is trace to mild mitral regurgitation. There is mild tricuspid regurgitation. Measurements Name Value Normal Range RVIDd (AP) 2D 3.1 cm (0.9 - 2.6) RVDdMajor (2D) 5 cm (2.2 - 4.4) RVAW (2D) 0.8 cm (0.2 - 0.5) RAd ISD 4CH 5.1 cm (3.4 - 4.9) RA (A4C)W 4.1 cm (2.9 - 4.6) IVSd (2D) 1.1 cm (0.6 - 1) LVPWd (2D) 1.1 cm (0.6 - 1) LVIDd (2D) 4.2 cm (3.6 - 5.4) LVIDs (2D) 2.6 cm - LV FS (2D) 39 % (25 - 45) Aortic Annulus 1.9 cm (1.4 - 2.6) Ao root diameter (2D) 3 cm (2.1 - 3.5) Ascending Ao 3.3 cm (2.1 - 3.4) Aortic arch 2.4 cm (1.8 - 3.4) LA dimension (AP) 2D 3.8 cm (2.3 - 3.8) LAd ISD 4CH 5 cm (2.9 - 5.3) LA ISD 4CH W 4.4 cm (2.5 - 4.5) Name Value Normal Range MV E-wave Vmax 1.1 m/sec - MV deceleration time 229 msec - MV A-wave Vmax 1 m/sec - MV E:A ratio 1.1 ratio - LV septal e' Vmax 0.06 m/sec - LV lateral e' Vmax 0.07 m/sec - LV E:e' septal ratio 18.3 ratio - LV E:e' lateral ratio 15.7 ratio - Name Value Normal Range AV Vmax 1.4 m/sec - AV VTI 30 cm - AV peak gradient 8 mmHg - AV mean gradient 4 mmHg - LVOT Vmax 1 m/sec - LVOT VTI 23 cm - LVOT peak gradient 4 mmHg - LVOT mean gradient 2 mmHg - JONO Vmax 0.7 m/sec - Name Value Normal Range TR Vmax 2.5 m/sec - TR peak gradient 25 mmHg - RAP 8 mmHg - RVSP 33 mmHg - IVC diameter 2.4 cm - Name Value Normal Range PV Vmax 1 m/sec - PV peak gradient 4 mmHg -
--- NOTE | 2018-10-16 16:49 | PN ---
Subjective Date of Service: 10/16/18 Interval History: Pt is feeling well. She states she is having less pain in the R labial area. She feels less "pressure." No SOB. No issues with bowel/bladder. Objective Active Medications: Acetaminophen (Tylenol Tab*) 650 mg PO Q4H PRN PRN Reason: FEVER/PAIN Last Admin: 10/16/18 05:07 Dose: 650 mg Al Hydrox/Mg Hydrox/Simethicone (Maalox Plus*) 30 ml PO Q6H PRN PRN Reason: INDIGESTION Dextrose (D50w Syringe 50 Ml*) 12.5 gm IV PUSH .FOR FS < 60 - SS PRN PRN Reason: FS < 60 Enoxaparin Sodium (Lovenox(*)) 40 mg SUBCUT Q24H [facility] Last Admin: 10/15/18 21:01 Dose: 40 mg Cefepime HCl (Maxipime 2 Gm In Dextrose Duplex (*)) 2 gm in 50 mls @ 100 mls/ hr IV Q12H [facility] Last Admin: 10/16/18 08:46 Dose: 100 mls/hr Vancomycin HCl 1,000 mg/ (Sodium Chloride) 250 mls @ 166.667 mls/hr IVPB Q12H [facility] Last Admin: 10/16/18 15:36 Dose: 166.667 mls/hr Insulin Human Lispro (Humalog*) 0 units SUBCUT AC [facility]; Protocol Last Admin: 10/16/18 12:51 Dose: 3 units Levothyroxine Sodium (Synthroid Tab*) 88 mcg PO 0600 [facility] Last Admin: 10/16/18 05:07 Dose: 88 mcg Pharmacy Consult (Vancomycin Per Pharmacy*) 1 note FOLLOW UP . PRN PRN Reason: PER PROTOCOL Pharmacy Profile Note (Vancomycin Trough Check) 1 note FOLLOW UP 1600 ONE Stop: 10/17/18 16:01 Vital Signs - 8 hr 10/16/18 11:47 Temperature 98.0 F Pulse Rate 55 Respiratory 20 Rate Blood Pressure 130/63 (mmHg) O2 Sat by Pulse 100 Oximetry Oxygen Devices in Use Now: None Appearance: Elderly female sitting up on the edge of the bed, NAD Eyes: No Scleral Icterus Ears/Nose/Mouth/Throat: Mucous Membranes Moist Respiratory: Symmetrical Chest Expansion and Respiratory Effort, Clear to Auscultation Cardiovascular: NL Sounds; No Murmurs; No JVD, RRR, No Edema Abdominal: NL Sounds; No Tenderness; No Distention Extremities: No Clubbing, Cyanosis Skin: No Nodules or Sclerosis, - - R labia majora is firm and erythematous, erythema extends to R buttock and mons pubis Neurological: Alert and Oriented x 3 Result Diagrams: 10/16/18 05:15 10/16/18 05:15 Microbiology and Other Data: Microbiology 10/15/18 15:43 Aerobic Blood Culture - Preliminary Blood Venous No Growth Day 1 Anaerobic Blood Culture - Preliminary No Growth Day 1 10/15/18 15:34 Aerobic Blood Culture - Preliminary Blood Venous No Growth Day 1 Anaerobic Blood Culture - Preliminary No Growth Day 1 10/15/18 16:00 Skin and Soft Tissue MRSA/MSSA (PCR - Final Misc Source (See Comment) Mrsa Positive S.aureus Positive Gram Stain - Final Wound Culture - Preliminary Staphylococcus Aureus Assess/Plan/Problems-Billing Ms Ackerman is a 73 yo F who has a h/o DM, HLD and hypothyroidism who presented to the ER with c/o fever and R labia pain and swelling. - Patient Problems (1) Cellulitis of labia Current Visit: Yes Status: Acute Code(s): N76.2 - ACUTE VULVITIS SNOMED Code(s): 44793757 Comment: Pt has had improvement in symptoms. Will continue vancomycin for now as aspiration of small abscess yesterday revealed MRSA. Will also add flagyl for anaerobic coverage. Continue to monitor for abscess development as the labia is still quite firm. (2) Sepsis Current Visit: Yes Status: Acute Comment: Present on admission, now resolved. (3) Type II diabetes mellitus Current Visit: Yes Status: Acute Comment: Sugars are not optimally controlled. Will restart metformin but increase to 1000mg BID. Check [id number] checked 08/2018 and was elevated at 10.2%. (4) Hypothyroidism Current Visit: Yes Status: Acute Code(s): E03.9 - HYPOTHYROIDISM, UNSPECIFIED SNOMED Code(s): 92606213 Comment: Continue current dose of synthroid. (5) HLD (hyperlipidemia) Current Visit: Yes Status: Acute Code(s): E78.5 - HYPERLIPIDEMIA, UNSPECIFIED SNOMED Code(s): 06301363 Comment: Not on medication. (6) DVT prophylaxis Current Visit: Yes Status: Acute Code(s): AOI6068 - SNOMED Code(s): 567736302 Comment: [place] (7) Full code status Current Visit: Yes Status: Acute Code(s): Z78.9 - OTHER SPECIFIED HEALTH STATUS SNOMED Code(s): 261207037
[2018-10-16] MEDS: Enoxaparin(*) 40 MG/0.4 ML SYR SUBCUT SCH (19:44)
[2018-10-16] MEDS: metFORMIN* 500 MG TAB PO SCH (21:23)
[2018-10-17] MEDS ORDERED: NS 0.9% 250 ML* 250 ML ONE (04:46)
[2018-10-17] MEDS: Vancomycin(*) 1,000 MG in NS 0.9% 250 ML* 250 ML IVPB SCH ×2 (04:54→17:01)
[2018-10-17] MEDS: Levothyroxine TAB* 88 MCG TAB PO SCH (04:59)
--- NOTE | 2018-10-17 08:31 | PN ---
Progress Note - Progress Note Date of Service: 10/17/18 Note: HD#3 right labial cellulitis Afeb, VS noted Feels a little better, less pain to sit Erythema and induration about the same. No fluctuance No evidence of need for surgical drainage Cont abx per hopitalist
[2018-10-17] MEDS: metFORMIN* 500 MG TAB PO SCH ×2 (08:45→21:17)
[2018-10-17] MEDS: Insulin LISPRO* 1 UNITS UNIT SUBCUT SCH ×3 (08:45→17:01)
[2018-10-17] MEDS: Cefepime 2 GM in Dextrose(*) 2 GM/50 ML BAG IV SCH (08:45)
--- NOTE | 2018-10-17 15:53 | PN ---
Subjective Date of Service: 10/17/18 Objective Active Medications: Acetaminophen (Tylenol Tab*) 650 mg PO Q4H PRN PRN Reason: FEVER/PAIN Last Admin: 10/16/18 05:07 Dose: 650 mg Al Hydrox/Mg Hydrox/Simethicone (Maalox Plus*) 30 ml PO Q6H PRN PRN Reason: INDIGESTION Dextrose (D50w Syringe 50 Ml*) 12.5 gm IV PUSH .FOR FS < 60 - SS PRN PRN Reason: FS < 60 Enoxaparin Sodium (Lovenox(*)) 40 mg SUBCUT Q24H [facility] Last Admin: 10/16/18 19:44 Dose: 40 mg Cefepime HCl (Maxipime 2 Gm In Dextrose Duplex (*)) 2 gm in 50 mls @ 100 mls/ hr IV Q12H [facility] Last Admin: 10/17/18 08:45 Dose: 100 mls/hr Vancomycin HCl 1,000 mg/ (Sodium Chloride) 250 mls @ 166.667 mls/hr IVPB Q12H [facility] Last Admin: 10/17/18 04:54 Dose: 166.667 mls/hr Insulin Human Lispro (Humalog*) 0 units SUBCUT AC [facility]; Protocol Last Admin: 10/17/18 13:43 Dose: 2 units Levothyroxine Sodium (Synthroid Tab*) 88 mcg PO 0600 [facility] Last Admin: 10/17/18 04:59 Dose: 88 mcg Metformin HCl (Glucophage*) 1,000 mg PO BID [facility] Last Admin: 10/17/18 08:45 Dose: 1,000 mg Pharmacy Consult (Vancomycin Per Pharmacy*) 1 note FOLLOW UP . PRN PRN Reason: PER PROTOCOL Pharmacy Profile Note (Vancomycin Trough Check) 1 note FOLLOW UP 1600 ONE Stop: 10/17/18 16:01 Vital Signs - 8 hr 10/17/18 08:00 O2 Sat by Pulse 99 Oximetry Oxygen Devices in Use Now: None Result Diagrams: 10/16/18 05:15 10/16/18 05:15 Microbiology and Other Data: Microbiology 10/15/18 15:43 Aerobic Blood Culture - Preliminary Blood Venous No Growth Day 1 Anaerobic Blood Culture - Preliminary No Growth Day 1 10/15/18 15:34 Aerobic Blood Culture - Preliminary Blood Venous No Growth Day 1 Anaerobic Blood Culture - Preliminary No Growth Day 1 10/15/18 16:00 Skin and Soft Tissue MRSA/MSSA (PCR - Final Misc Source (See Comment) Mrsa Positive S.aureus Positive Gram Stain - Final Wound Culture - Preliminary Staphylococcus Aureus Assess/Plan/Problems-Billing Ms Ackerman is a 73 yo F who has a h/o DM, HLD and hypothyroidism who presented to the ER with c/o fever and R labia pain and swelling.
[2018-10-17] MEDS ORDERED: Vancomycin Trough Check NOTE FOLLOW UP ONE (16:00)
--- NOTE | 2018-10-17 16:11 | PN ---
Subjective Date of Service: 10/17/18 Interval History: Reports some improvement in pain Objective Active Medications: Acetaminophen (Tylenol Tab*) 650 mg PO Q4H PRN PRN Reason: FEVER/PAIN Last Admin: 10/16/18 05:07 Dose: 650 mg Al Hydrox/Mg Hydrox/Simethicone (Maalox Plus*) 30 ml PO Q6H PRN PRN Reason: INDIGESTION Dextrose (D50w Syringe 50 Ml*) 12.5 gm IV PUSH .FOR FS < 60 - SS PRN PRN Reason: FS < 60 Enoxaparin Sodium (Lovenox(*)) 40 mg SUBCUT Q24H [facility] Last Admin: 10/16/18 19:44 Dose: 40 mg Cefepime HCl (Maxipime 2 Gm In Dextrose Duplex (*)) 2 gm in 50 mls @ 100 mls/ hr IV Q12H [facility] Last Admin: 10/17/18 08:45 Dose: 100 mls/hr Vancomycin HCl 1,000 mg/ (Sodium Chloride) 250 mls @ 166.667 mls/hr IVPB Q12H [facility] Last Admin: 10/17/18 04:54 Dose: 166.667 mls/hr Insulin Human Lispro (Humalog*) 0 units SUBCUT AC [facility]; Protocol Last Admin: 10/17/18 13:43 Dose: 2 units Levothyroxine Sodium (Synthroid Tab*) 88 mcg PO 0600 [facility] Last Admin: 10/17/18 04:59 Dose: 88 mcg Metformin HCl (Glucophage*) 1,000 mg PO BID [facility] Last Admin: 10/17/18 08:45 Dose: 1,000 mg Pharmacy Consult (Vancomycin Per Pharmacy*) 1 note FOLLOW UP . PRN PRN Reason: PER PROTOCOL Oxygen Devices in Use Now: None Eyes: No Scleral Icterus Ears/Nose/Mouth/Throat: NL Teeth, Lips, Gums Neck: NL Appearance and Movements; NL JVP Respiratory: Symmetrical Chest Expansion and Respiratory Effort, Clear to Auscultation Cardiovascular: NL Sounds; No Murmurs; No JVD Abdominal: NL Sounds; No Tenderness; No Distention, - - R labia firm erythema extending to pubis Extremities: No Edema Neurological: Alert and Oriented x 3 Result Diagrams: 10/16/18 05:15 10/16/18 05:15 Microbiology and Other Data: Microbiology 10/15/18 15:43 Aerobic Blood Culture - Preliminary Blood Venous No Growth Day 1 Anaerobic Blood Culture - Preliminary No Growth Day 1 10/15/18 15:34 Aerobic Blood Culture - Preliminary Blood Venous No Growth Day 1 Anaerobic Blood Culture - Preliminary No Growth Day 1 10/15/18 16:00 Skin and Soft Tissue MRSA/MSSA (PCR - Final Misc Source (See Comment) Mrsa Positive S.aureus Positive Gram Stain - Final Wound Culture - Preliminary Staphylococcus Aureus Assess/Plan/Problems-Billing Ms Ackerman is a 73 yo F who has a h/o DM, HLD and hypothyroidism who presented to the ER with c/o fever and R labia pain and swelling. - Patient Problems (1) Cellulitis of labia Current Visit: Yes Status: Acute Code(s): N76.2 - ACUTE VULVITIS SNOMED Code(s): 13700889 Comment: Pt has had improvement in symptoms. Will continue vancomycin for now as aspiration of small abscess yesterday revealed MRSA. Will also add flagyl for anaerobic coverage. Continue to monitor for abscess development as the labia is firm. Appreciate surgery input (2) Hypothyroidism Current Visit: Yes Status: Acute Code(s): E03.9 - HYPOTHYROIDISM, UNSPECIFIED SNOMED Code(s): 57378536 Comment: Continue current dose of synthroid. (3) Sepsis Current Visit: Yes Status: Acute Comment: Present on admission, now resolved. (4) Type II diabetes mellitus Current Visit: Yes Status: Acute Comment: Sugars are not optimally controlled. Will restart metformin but increase to 1000mg BID. Check [id number] checked 08/2018 and was elevated at 10.2%.
[2018-10-17] MEDS ORDERED: metroNIDAZOLE IV 500 MG/100ML* 500 MG/100 ML BAG IVPB SCH (17:00)
[2018-10-17] MEDS: Enoxaparin(*) 40 MG/0.4 ML SYR SUBCUT SCH (19:30)
[2018-10-17] MEDS: metroNIDAZOLE IV 500 MG/100ML* 500 MG/100 ML BAG IVPB SCH (19:30)
[2018-10-17] MEDS: Acetaminophen TAB* 325 MG PO PRN (19:30)
[2018-10-18] MEDS: metroNIDAZOLE IV 500 MG/100ML* 500 MG/100 ML BAG IVPB SCH ×3 (03:33→22:00)
[2018-10-18] MEDS: Levothyroxine TAB* 88 MCG TAB PO SCH (05:02)
[2018-10-18] MEDS: Vancomycin(*) 1,000 MG in NS 0.9% 250 ML* 250 ML IVPB SCH ×2 (05:05→17:12)
[2018-10-18 05:36] LABS: ABS Basophils 0.1 10^3/ul (0-0.2); ABS Eosinophils 0.5 10^3/ul (0-0.6); ABS Lymphocytes 1.8 10^3/ul (1.0-4.8); ABS Monocytes 0.6 10^3/ul (0-0.8); ABS Neutrophils 4.9 10^3/ul (1.5-7.7); ABS Nucleated RBC 0 10^3/ul; Eosinophil % 6.5 %; Hematocrit 41 % (33-41); Hemoglobin 14.2 g/dL (12.0-16.0); Lymphocyte % 23.1 %; Mean Corpuscular HGB Conc 34 g/dL (31-36); Mean Corpuscular Hemoglobin 31 pg (27-31); Mean Corpuscular Volume 92 fL (80-97); Mean Platelet Volume 8.7 fL (7.4-10.4); Nucleated Red Blood Cells % 0; Platelet Count 212 10^3/uL (150-450); Red Blood Count 4.52 10^6 /uL (3.70-4.87); Red Cell Distribution Width 13 % (10.5-15)
[2018-10-18 05:53] LABS: BUN/Creatinine Ratio 17.4 (8-20); Calcium 9.1 mg/dL (8.6-10.3); EGFR African American 100.6 (>60); EGFR Non-African American 83.2 (>60)
[2018-10-18] MEDS ORDERED: PROCHLORPERAZINE INJ 5 MG/ML 2 ML VIAL IV PRN (06:24)
[2018-10-18] MEDS: metFORMIN* 500 MG TAB PO SCH ×2 (09:03→20:41)
[2018-10-18] MEDS: Insulin LISPRO* 1 UNITS UNIT SUBCUT SCH ×3 (09:03→17:14)
--- NOTE | 2018-10-18 13:12 | PN ---
Subjective Date of Service: 10/18/18 Interval History: Flagyl added yesterday.Reports feeling significantly better today.WBC and erythema improved Objective Active Medications: Acetaminophen (Tylenol Tab*) 650 mg PO Q4H PRN PRN Reason: FEVER/PAIN Last Admin: 10/17/18 19:30 Dose: 650 mg Al Hydrox/Mg Hydrox/Simethicone (Maalox Plus*) 30 ml PO Q6H PRN PRN Reason: INDIGESTION Dextrose (D50w Syringe 50 Ml*) 12.5 gm IV PUSH .FOR FS < 60 - SS PRN PRN Reason: FS < 60 Enoxaparin Sodium (Lovenox(*)) 40 mg SUBCUT Q24H [facility] Last Admin: 10/17/18 19:30 Dose: 40 mg Vancomycin HCl 1,000 mg/ (Sodium Chloride) 250 mls @ 100 mls/hr IVPB Q12H [facility] Last Admin: 10/18/18 05:05 Dose: 100 mls/hr Metronidazole/Sodium Chloride (Flagyl 500 Mg Ivpb*) 500 mg in 100 mls @ 100 mls /hr IVPB 0330,1130,1930 [facility] Last Admin: 10/18/18 12:05 Dose: 100 mls/hr Insulin Human Lispro (Humalog*) 0 units SUBCUT AC [facility]; Protocol Last Admin: 10/18/18 11:56 Dose: Not Given Levothyroxine Sodium (Synthroid Tab*) 88 mcg PO 0600 [facility] Last Admin: 10/18/18 05:02 Dose: 88 mcg Metformin HCl (Glucophage*) 1,000 mg PO BID [facility] Last Admin: 10/18/18 09:03 Dose: 1,000 mg Pharmacy Consult (Vancomycin Per Pharmacy*) 1 note FOLLOW UP . PRN PRN Reason: PER PROTOCOL Prochlorperazine Edisylate (Compazine Inj*) 10 mg IV Q6H PRN PRN Reason: NAUSEA/VOMITING Vital Signs - 8 hr 10/18/18 10/18/18 10/18/18 05:19 07:17 07:41 Temperature 97.6 F 97.3 F Pulse Rate 78 68 Respiratory 20 18 16 Rate Blood Pressure 155/83 136/69 (mmHg) O2 Sat by Pulse 98 94 Oximetry 10/18/18 11:17 Temperature 97.0 F Pulse Rate 68 Respiratory 16 Rate Blood Pressure 116/63 (mmHg) O2 Sat by Pulse 95 Oximetry Oxygen Devices in Use Now: None Eyes: No Scleral Icterus Ears/Nose/Mouth/Throat: NL Teeth, Lips, Gums Neck: NL Appearance and Movements; NL JVP Respiratory: Symmetrical Chest Expansion and Respiratory Effort, Clear to Auscultation Cardiovascular: NL Sounds; No Murmurs; No JVD Abdominal: NL Sounds; No Tenderness; No Distention, - - erythema in pubis area improved. Labia less erythematous and less indurated Neurological: Alert and Oriented x 3 Result Diagrams: 10/18/18 05:09 10/18/18 05:09 Microbiology and Other Data: Microbiology 10/15/18 15:43 Aerobic Blood Culture - Preliminary Blood Venous No Growth Day 1 Anaerobic Blood Culture - Preliminary No Growth Day 1 10/15/18 15:34 Aerobic Blood Culture - Preliminary Blood Venous No Growth Day 1 Anaerobic Blood Culture - Preliminary No Growth Day 1 10/15/18 16:00 Skin and Soft Tissue MRSA/MSSA (PCR - Final Misc Source (See Comment) Mrsa Positive S.aureus Positive Gram Stain - Final Wound Culture - Preliminary Staphylococcus Aureus Assess/Plan/Problems-Billing Ms Ackerman is a 73 yo F who has a h/o DM, HLD and hypothyroidism who presented to the ER with c/o fever and R labia pain and swelling. - Patient Problems (1) Cellulitis of labia Current Visit: Yes Status: Acute Code(s): N76.2 - ACUTE VULVITIS SNOMED Code(s): 86533691 Comment: Pt has had improvement in symptoms. Will continue vancomycin for now as aspiration of small abscess yesterday revealed MRSA. Significant improvement after Flagyl added yesterday F/u sensitivity of MRSA Continue IV antibiotics today.Multiple drug allergies.If doing well, can likely be discharged tomorrow on PO abx Appreciate surgery input (2) Hypothyroidism Current Visit: Yes Status: Acute Code(s): E03.9 - HYPOTHYROIDISM, UNSPECIFIED SNOMED Code(s): 66272209 Comment: Continue current dose of synthroid. (3) Sepsis Current Visit: Yes Status: Acute Comment: Present on admission, now resolved. (4) Type II diabetes mellitus Current Visit: Yes Status: Acute Comment: Sugars are not optimally controlled. Will restart metformin but increase to 1000mg BID. Check [id number] checked 08/2018 and was elevated at 10.2%.
[2018-10-18] MEDS: Enoxaparin(*) 40 MG/0.4 ML SYR SUBCUT SCH (20:41)
[2018-10-19] MEDS: metroNIDAZOLE IV 500 MG/100ML* 500 MG/100 ML BAG IVPB SCH ×2 (03:54→11:12)
[2018-10-19] MEDS: Levothyroxine TAB* 88 MCG TAB PO SCH (05:15)
[2018-10-19 05:28] LABS: ABS Basophils 0.1 10^3/ul (0-0.2); ABS Eosinophils 0.5 10^3/ul (0-0.6); ABS Lymphocytes 2.2 10^3/ul (1.0-4.8); ABS Monocytes 0.7 10^3/ul (0-0.8); ABS Neutrophils 4.2 10^3/ul (1.5-7.7); ABS Nucleated RBC 0 10^3/ul; Hematocrit 40 % (33-41); Hemoglobin 13.8 g/dL (12.0-16.0); Lymphocyte % 28.4 %; Mean Corpuscular HGB Conc 34 g/dL (31-36); Mean Corpuscular Hemoglobin 31 pg (27-31); Mean Corpuscular Volume 91 fL (80-97); Mean Platelet Volume 8.1 fL (7.4-10.4); Nucleated Red Blood Cells % 0; Platelet Count 232 10^3/uL (150-450); Red Blood Count 4.41 10^6 /uL (3.70-4.87); Red Cell Distribution Width 12 % (10.5-15); White Blood Count 7.7 10^3/uL (3.5-10.8)
[2018-10-19 05:50] LABS: BUN/Creatinine Ratio 22.1 (8-20); CRP High Sensitivity 36.42 mg/L (<2.00); Calcium 9.4 mg/dL (8.6-10.3); EGFR African American 88.7 (>60); EGFR Non-African American 73.3 (>60)
[2018-10-19] MEDS: metFORMIN* 500 MG TAB PO SCH (08:38)
[2018-10-19] MEDS: Insulin LISPRO* 1 UNITS UNIT SUBCUT SCH ×2 (08:38→11:34)
[2018-10-19 11:45] VITALS: BP 123/48
--- NOTE | 2018-10-27 02:36 | DS ---
CC: GRACY Marroquin; Dr. Ajay Loredo DISCHARGE SUMMARY: DATE OF ADMISSION: 10/15/18 DATE OF DISCHARGE: 10/19/18 PRIMARY CARE PHYSICIAN: GRACY Marroquin. DISPOSITION: To home. CONDITION: Good. PRIMARY DIAGNOSIS: Cellulitis. SECONDARY DIAGNOSES: 1. Hypothyroid. 2. Fibromyalgia. 3. Obesity. 4. Diabetes. 5. Migraines. 6. Osteoarthritis. CONSULTS: Surgery, Dr. Ajay Loredo. PERTINENT LABS AND STUDIES: Pelvis MRI on 10/15/18 showed edema within the perineum to the right of midline, consistent with cellulitis. There is a 0.5 cm area suggestive of a small abscess. There is no appreciable intraperitoneal extension. Transthoracic echocardiogram on 10/15/18 showed mild concentric LV hypertrophy with estimated EF 60% to 65%, abnormal LV diastolic filling is observed, consistent with impaired relaxation. RV is mild-t o-moderately dilated, RV wall thickness is mildly increased, RV global systolic function is low john l. The aortic and mitral valve leaflets are mildly thickened with trace MR and TR. PROCEDURES: I and D of labial abscess performed on 10/15/18. DISCHARGE MEDICATION: 1. Doxycycline 100 mg twice a day for 1 week. 2. Metformin 1000 mg twice a day. 3. Levothyroxine 88 mcg daily. HISTORY OF PRESENT ILLNESS: A 73-year-old woman with hypothyroid, fibromyalgia, obesity, diabetes, m igraines, and osteoarthritis, who presented to the emergency room with complaints of progressively wo rsening labial swelling and pain. The patient reports that she started having right labial swelling approximately 4 days ago and yesterday she developed fever. She made an appointment with her primary care provider, who sent her to the emergency room for further evaluation. She denies chills. She d id report subjective fever, but denied chest pain or edema, cough or hemoptysis. She did have mild s hortness of breath, but denied nausea, vomiting, diarrhea, abdominal pain, gross hematuria, dysuria, focal weakness or sensory loss. HOSPITAL COURSE: She was admitted to the medical floor and also evaluated by Surgery, who performed a wound aspirate, which was sent for microbiology. She was initially started on broad-spectrum antib iotics, given vancomycin and cefepime. By the next day of her admission, her microbiology results we re positive for MRSA infection. After improvement in her pain and swelling and without return of flu ctuance, she was deemed safe for discharge. DISCHARGE PLAN: The patient is to follow up with her primary care physician within 1 week of dischar ge. She should continue a course of antibiotics. We will discharge on doxycycline given the MRSA co verage. She is to resume a healthy diet, low in processed foods and sugar given her diagnosis of odalys barrett. She is also to follow up with her PCC given her echo findings, which would be concerning for diastolic heart failure in the right clinical setting. However, she was not observed to be volume ov erloaded during this admission, so she was not given that diagnosis, but she will need further monito ring by her PCP. TIME SPENT: Approximately 60 minutes were spent on discharge of this patient, more than half of ic h was spent with care coordination at bedside for interview and exam. [id number]/[facility] #: [id number]
== END 2018-10-19 13:10 | disposition home or self-care (01) | DRG 872 ==
LOC: ED 12:34 → MEDTELE 18:12
PROVIDERS: ADMIT Internal Medicine; ATTEND Internal Medicine
PROC: 0W9N3ZX Drainage of Female Perineum, Percutaneous Approach, Diagnostic (ICD-10-PCS; principal; 2018-10-15)
DX: A41.9 Sepsis, unspecified organism (principal); L03.315 Cellulitis of perineum; N76.2 Acute vulvitis; E66.9 Obesity, unspecified; E11.9 Type 2 diabetes mellitus without complications; B95.62 Methicillin resistant Staphylococcus aureus infection as the cause of diseases classified elsewhere; E78.5 Hyperlipidemia, unspecified; E03.9 Hypothyroidism, unspecified; M79.7 Fibromyalgia; M19.90 Unspecified osteoarthritis, unspecified site; G43.909 Migraine, unspecified, not intractable, without status migrainosus; E78.00 Pure hypercholesterolemia, unspecified; J45.909 Unspecified asthma, uncomplicated; K21.9 Gastro-esophageal reflux disease without esophagitis; H91.90 Unspecified hearing loss, unspecified ear; Z90.89 Acquired absence of other organs; Z90.710 Acquired absence of both cervix and uterus; Z98.51 Tubal ligation status; Z82.49 Family history of ischemic heart disease and other diseases of the circulatory system; Z91.041 Radiographic dye allergy status; Z88.0 Allergy status to penicillin; Z88.2 Allergy status to sulfonamides; Z68.41 Body mass index [BMI] 40.0-44.9, adult; Z88.1 Allergy status to other antibiotic agents; Z88.8 Allergy status to other drugs, medicaments and biological substances; Z82.3 Family history of stroke; Z80.3 Family history of malignant neoplasm of breast
CPT/HCPCS: 36415; 71045; 72195; 80048; 80053; 80061; 80202; 81003; 81015; 83036; 83605; 84484; 85025; 85610; 85730; 86140; 86141; 87040; 87070; 87077; 87186; 87205; 87640; 87641; 93005; 93306; 99284; A9270-GY; J0692; J1650; J3370; J3490

== ENCOUNTER 2023-10-11 06:32 | Inpatient (IN) ==
[2023-10-11] MEDS: Heparin - STEMI 5,000 UNITS/ML 1 ml VIAL IV ONE (06:52)
[2023-10-11] MEDS: Ondansetron 4 mg VIAL 2 MG/ML 2 ml VIAL IV ONE (06:55)
[2023-10-11 07:02] LABS: ABS Basophils 0.1 10^3/uL (0.0-0.1); ABS Monocytes 0.3 10^3/uL (0.0-0.9); ABS Nucleated RBC 0.01 10^3/ul; Eosinophil % 0.6 %; Hematocrit 44.9 % (35-45); Hemoglobin 15.4 g/dL (11.5-14.3); Mean Corpuscular Hemoglobin 31.8 pg (27-33); Mean Corpuscular Hgb Conc 34.2 g/dL (31-36); Mean Corpuscular Volume 92.8 fL (80-97); Mean Platelet Volume 8.4 fL (7.5-11.2); Nucleated Red Blood Cells % 0.1 %/100WBC (0.0-0.8); Platelet Count 196 10^3/uL (150-450); Red Blood Count 4.83 10^6/uL (3.63-4.92); White Blood Count 7.4 10^3/uL (3.8-11.8)
[2023-10-11] MEDS ORDERED: fentaNYL 100 mcg/2 ml 50 MCG/ML VIAL ONE (07:13)
[2023-10-11] MEDS ORDERED: VERAPAMIL 2.5 MG/ML 2 ML VIAL ** 5 mg/2 ml ONE (07:13)
[2023-10-11] MEDS ORDERED: Heparin 1,000 UNIT/ML 10 ml (10,000 UNITS) CATHLAB/DIALYSIS ONE (07:13)
[2023-10-11] MEDS ORDERED: Midazolam 5 mg/5 ml VIAL 1 mg/ml 5 ml VIAL (5 mg) ONE (07:13)
[2023-10-11] MEDS ORDERED: nitroGLYCERIN DRIP 25,000 MCG/250 ML BTL ONE (07:14)
[2023-10-11] MEDS ORDERED: Heparin 2 UNITS/ML 1000 mls 2,000 ML IV ONE (07:14)
[2023-10-11] MEDS ORDERED: Iohexol 350 (CONTRAST) 200 ML MDV IV ONE (07:14)
[2023-10-11] MEDS ORDERED: Lidocaine 1% MPF 5 ML VIAL ONE (07:14)
[2023-10-11] MEDS ORDERED: methylPREDNISolone SOD SUCC 125 mg 2 ML VIAL ONE (07:15)
[2023-10-11 07:20] LABS: Albumin 4.7 g/dL (3.2-5.2); Albumin/Globulin Ratio 1.7 (1-3); Calcium 9.5 mg/dL (8.6-10.3); Creatinine, Serum 0.94 mg/dL (0.51-0.95); Globulin 2.7 g/dL (2-4); Potassium 4.4 mmol/L (3.5-5.0); Total Bilirubin 0.5 mg/dL (0.2-1.0); Total Protein 7.4 g/dL (6.4-8.9); eGFR CKD-EPI 61.7 (>60)
[2023-10-11] MEDS: methylPREDNISolone SOD SUCC 125 mg 2 ML VIAL IV ONE (07:20)
[2023-10-11] MEDS ORDERED: Bivalirudin 250 MG VIAL ONE (07:41)
[2023-10-11] MEDS ORDERED: Atropine 0.1 MG/ML 10 ml SYR (1 mg) ONE (07:59)
[2023-10-11] MEDS: NS 0.9% 1000 ml BAG 1,000 ML IV SCH (09:24)
[2023-10-11] MEDS: Furosemide 20 mg/2 ml IV VIAL IV ONE (09:56)
[2023-10-11] MEDS: Enoxaparin 40 MG/0.4 ML SYR SUBCUT SCH (19:35)
[2023-10-11] MEDS ORDERED: Dextrose 50% Syringe 50 ml 25 GM/50 ML SYRINGE IV PUSH PRN (21:30)
[2023-10-12 04:56] LABS: ABS Basophils 0.1 10^3/uL (0.0-0.1); ABS Lymphocytes 1.6 10^3/uL (1.0-4.8); ABS Neutrophils 8.4 10^3/uL (1.5-7.6); ABS Nucleated RBC 0.01 10^3/ul; Eosinophil % 0.3 %; Hematocrit 40.4 % (35-45); Hemoglobin 13.9 g/dL (11.5-14.3); Lymphocyte % 14.7 %; Mean Corpuscular Hemoglobin 31.8 pg (27-33); Mean Corpuscular Hgb Conc 34.4 g/dL (31-36); Mean Corpuscular Volume 92.6 fL (80-97); Mean Platelet Volume 8.6 fL (7.5-11.2); Nucleated Red Blood Cells % 0.1 %/100WBC (0.0-0.8); Platelet Count 193 10^3/uL (150-450); Red Blood Count 4.36 10^6/uL (3.63-4.92); Red Cell Distribution Width 13.1 % (12-17); White Blood Count 11.1 10^3/uL (3.8-11.8)
[2023-10-12 05:51] LABS: ALT 32 U/L (7-52); Albumin 3.9 g/dL (3.2-5.2); Albumin/Globulin Ratio 1.6 (1-3); Alkaline Phosphatase 32 U/L (35-149); Anion Gap 8 mmol/L (2-16); Blood Urea Nitrogen 27 mg/dL (6-24); CO2 Carbon Dioxide 25 mmol/L (22-32); Calcium 9.1 mg/dL (8.6-10.3); Chloride 101 mmol/L (101-111); Cholesterol 231 mg/dL; Creatinine, Serum 1.02 mg/dL (0.51-0.95); Globulin 2.4 g/dL (2-4); Glucose 175 mg/dL (70-100); HDL Cholesterol 36.1 mg/dL; LDL Cholesterol 161 mg/dL; Sodium 134 mmol/L (135-145); Total Bilirubin 0.7 mg/dL (0.2-1.0); Total Protein 6.3 g/dL (6.4-8.9); Triglycerides 171 mg/dL
[2023-10-12 07:54] LABS: Potassium, Whole Blood 5.2 mmol/L (3.4-4.5)
[2023-10-12] MEDS: NS 0.9% 500 ml BAG 500 ML IV ONE (09:56)
[2023-10-12] MEDS ORDERED: Sulfur Hexaflouride MICROSPHR 25 MG VIAL ONE (10:24)
[2023-10-12 20:57] LABS: Calcium 8.9 mg/dL (8.6-10.3); Creatinine, Serum 1.31 mg/dL (0.51-0.95); Potassium 4.2 mmol/L (3.5-5.0); eGFR CKD-EPI 41.4 (>60)
[2023-10-13 04:06] LABS: ABS Basophils 0.1 10^3/uL (0.0-0.1); ABS Eosinophils 0.2 10^3/uL (0.0-0.5); ABS Lymphocytes 1.8 10^3/uL (1.0-4.8); ABS Monocytes 0.8 10^3/uL (0.0-0.9); ABS Neutrophils 6.2 10^3/uL (1.5-7.6); Eosinophil % 2.4 %; Hematocrit 38.8 % (35-45); Hemoglobin 13.4 g/dL (11.5-14.3); Lymphocyte % 19.8 %; Mean Corpuscular Hemoglobin 32.1 pg (27-33); Mean Corpuscular Hgb Conc 34.7 g/dL (31-36); Mean Corpuscular Volume 92.6 fL (80-97); Mean Platelet Volume 8.8 fL (7.5-11.2); Platelet Count 185 10^3/uL (150-450); Red Blood Count 4.19 10^6/uL (3.63-4.92); Red Cell Distribution Width 12.9 % (12-17); White Blood Count 9.1 10^3/uL (3.8-11.8)
[2023-10-13 04:41] LABS: High Sensitivity Troponin 1 Hr 13495 pg/mL (<15)
[2023-10-13 05:04] LABS: Blood Urea Nitrogen 28 mg/dL (6-24); CO2 Carbon Dioxide 24 mmol/L (22-32); Calcium 8.3 mg/dL (8.6-10.3); Chloride 106 mmol/L (101-111); Creatinine, Serum 0.91 mg/dL (0.51-0.95); Glucose 163 mg/dL (70-100); Sodium 137 mmol/L (135-145); eGFR CKD-EPI 64.2 (>60)
[2023-10-13 05:20] LABS: Anion Gap 7 mmol/L (2-16)
[2023-10-14 06:14] LABS: ABS Basophils 0.1 10^3/uL (0.0-0.1); ABS Eosinophils 0.2 10^3/uL (0.0-0.5); ABS Lymphocytes 1.7 10^3/uL (1.0-4.8); ABS Monocytes 0.6 10^3/uL (0.0-0.9); ABS Neutrophils 4.5 10^3/uL (1.5-7.6); ABS Nucleated RBC 0.01 10^3/ul; Eosinophil % 3.3 %; Hematocrit 40.2 % (35-45); Lymphocyte % 24.1 %; Mean Corpuscular Hemoglobin 32.3 pg (27-33); Mean Corpuscular Hgb Conc 34.8 g/dL (31-36); Mean Corpuscular Volume 92.8 fL (80-97); Mean Platelet Volume 8.7 fL (7.5-11.2); Nucleated Red Blood Cells % 0.1 %/100WBC (0.0-0.8); Platelet Count 178 10^3/uL (150-450); Red Blood Count 4.33 10^6/uL (3.63-4.92); White Blood Count 7.1 10^3/uL (3.8-11.8)
[2023-10-14 07:10] LABS: Calcium 9.1 mg/dL (8.6-10.3); Creatinine, Serum 0.84 mg/dL (0.51-0.95); Magnesium 2.1 mg/dL (1.9-2.7); Potassium 4.3 mmol/L (3.5-5.0); eGFR CKD-EPI 70.6 (>60)
[2023-10-14 13:54] VITALS: BP 103/75
== END 2023-10-14 15:55 | disposition home or self-care (01) | DRG 322 ==
LOC: ED 06:32 → CHICARD 06:50 → SUATTDRO 09:20 → ICU 09:20 → MEDTELE 10-13 18:39
PROVIDERS: ATTEND Internal Medicine

== ENCOUNTER 2023-11-15 08:11 | Observation (INO) ==
[2023-11-15 08:40] LABS: ABS Eosinophils 0.2 10^3/uL (0.0-0.5); ABS Lymphocytes 1.1 10^3/uL (1.0-4.8); ABS Monocytes 0.4 10^3/uL (0.0-0.9); ABS Neutrophils 4.3 10^3/uL (1.5-7.6); Eosinophil % 3.6 %; Hematocrit 41.5 % (35-45); Hemoglobin 13.9 g/dL (11.5-14.3); Lymphocyte % 18.3 %; Mean Corpuscular Hemoglobin 31.2 pg (27-33); Mean Corpuscular Hgb Conc 33.6 g/dL (31-36); Mean Platelet Volume 8.4 fL (7.5-11.2); Platelet Count 215 10^3/uL (150-450); Red Blood Count 4.46 10^6/uL (3.63-4.92); Red Cell Distribution Width 13.1 % (12-17)
[2023-11-15 09:00] LABS: INR 1.05 (0.83-1.13)
[2023-11-15 09:06] LABS: High Sens Troponin Baseline 11 pg/mL (<15)
[2023-11-15 09:38] LABS: ALT 17 U/L (7-52); Albumin 4.1 g/dL (3.2-5.2); Albumin/Globulin Ratio 1.9 (1-3); Alkaline Phosphatase 42 U/L (35-149); Anion Gap 11 mmol/L (2-16); Blood Urea Nitrogen 14 mg/dL (6-24); CO2 Carbon Dioxide 26 mmol/L (22-32); Calcium 9.3 mg/dL (8.6-10.3); Chloride 103 mmol/L (101-111); Creatinine, Serum 0.99 mg/dL (0.51-0.95); Globulin 2.2 g/dL (2-4); Glucose 179 mg/dL (70-100); Magnesium 1.9 mg/dL (1.9-2.7); Sodium 140 mmol/L (135-145); TSH Ultra Thyroid Stim Horm 5.76 mcIU/mL (0.34-5.60); Total Bilirubin 0.6 mg/dL (0.2-1.0); Total Protein 6.3 g/dL (6.4-8.9)
[2023-11-15 10:07] LABS: High Sensitivity Troponin 1 Hr 11 pg/mL (<15)
[2023-11-15] MEDS: Acetaminophen IV 1 GM/100ML 1,000 MG/100 ML BAG IV ONE (10:25)
[2023-11-15] MEDS: NS 0.9% 1000 ml BAG 1,000 ML IV ONE (10:25)
[2023-11-15 13:37] LABS: C Reactive Protein < 1.00 mg/L (<8.01)
[2023-11-15] MEDS: Enoxaparin 40 MG/0.4 ML SYR SUBCUT SCH (13:47)
[2023-11-15] MEDS ORDERED: Dextrose 50% Syringe 50 ml 25 GM/50 ML SYRINGE IV PUSH PRN (13:48)
[2023-11-15] MEDS ORDERED: Levalbuterol HFA INHALER MDI INH PRN (13:58)
[2023-11-15] MEDS: Lactated Ringers 1000 ml BAG 1,000 ML IV ONE (14:13)
[2023-11-15 15:15] LABS: Erythrocyte Sed Rate 5 mm/Hr (0-29)
[2023-11-15 15:30] LABS: Potassium Redraw 4.2 mmol/L (3.5-5.0)
[2023-11-16 07:35] LABS: Albumin 4.2 g/dL (3.2-5.2); Albumin/Globulin Ratio 1.8 (1-3); Calcium 9.8 mg/dL (8.6-10.3); Creatinine, Serum 0.9 mg/dL (0.51-0.95); Globulin 2.3 g/dL (2-4); Potassium 4.8 mmol/L (3.5-5.0); Total Bilirubin 0.6 mg/dL (0.2-1.0); Total Protein 6.5 g/dL (6.4-8.9)
[2023-11-16 14:59] VITALS: BP 134/73
== END 2023-11-16 15:35 | disposition short-term general hospital (02) ==
LOC: EDHOLD 08:11 → ED 08:11 → MEDTELE 12:58
PROVIDERS: ADMIT Internal Medicine; ATTEND Hospitalist

== ENCOUNTER 2024-03-04 12:09 | Observation (INO) ==
[2024-03-04 12:54] LABS: ABS Basophils 0.1 10^3/uL (0.0-0.1); ABS Eosinophils 0.2 10^3/uL (0.0-0.5); ABS Lymphocytes 1.3 10^3/uL (1.0-4.8); ABS Monocytes 0.5 10^3/uL (0.0-0.9); ABS Neutrophils 5.3 10^3/uL (1.5-7.6); Eosinophil % 3.1 %; Hematocrit 44.1 % (35-45); Hemoglobin 14.7 g/dL (11.5-14.3); Lymphocyte % 17.3 %; Mean Corpuscular Hemoglobin 30.5 pg (27-33); Mean Corpuscular Hgb Conc 33.4 g/dL (31-36); Mean Corpuscular Volume 91.1 fL (80-97); Mean Platelet Volume 8.5 fL (7.5-11.2); Platelet Count 203 10^3/uL (150-450); Red Blood Count 4.84 10^6/uL (3.63-4.92); Red Cell Distribution Width 14.1 % (12-17); White Blood Count 7.4 10^3/uL (3.8-11.8)
[2024-03-04 12:58] LABS: INR 1.04 (0.85-1.14)
[2024-03-04 13:31] LABS: Albumin 4.2 g/dL (3.2-5.2); Albumin/Globulin Ratio 1.8 (1-3); Calcium 9.7 mg/dL (8.6-10.3); Creatinine, Serum 0.78 mg/dL (0.51-0.95); Globulin 2.4 g/dL (2-4); Potassium 4.3 mmol/L (3.5-5.0); Total Bilirubin 0.6 mg/dL (0.2-1.0); Total Protein 6.6 g/dL (6.4-8.9); eGFR CKD-EPI 76.7 (>60)
[2024-03-04 14:28] LABS: High Sensitivity Troponin 1 Hr 10 pg/mL (<15)
[2024-03-04] MEDS ORDERED: Polyethylene Glycol 3350 17 GM PACKET PO PRN (15:33)
[2024-03-04] MEDS ORDERED: Senna TAB 8.6 mg TAB PO PRN (15:33)
[2024-03-04 16:12] LABS: High Sensitivity Troponin 3 Hr 11 pg/mL (<15)
[2024-03-04] MEDS ORDERED: Dextrose 50% Syringe 50 ml 25 GM/50 ML SYRINGE IV PUSH PRN (17:09)
[2024-03-04] MEDS: Enoxaparin 40 MG/0.4 ML SYR SUBCUT SCH (23:32)
[2024-03-05 05:23] VITALS: BP 134/78
[2024-03-05 06:42] LABS: Hemoglobin 15.2 g/dL (11.5-14.3); Mean Corpuscular Hemoglobin 30.8 pg (27-33); Mean Corpuscular Hgb Conc 33.8 g/dL (31-36); Mean Corpuscular Volume 91.1 fL (80-97); Mean Platelet Volume 8.5 fL (7.5-11.2); Platelet Count 209 10^3/uL (150-450); Red Blood Count 4.94 10^6/uL (3.63-4.92); Red Cell Distribution Width 14.4 % (12-17); White Blood Count 7.1 10^3/uL (3.8-11.8)
[2024-03-05 07:01] LABS: Calcium 9.5 mg/dL (8.6-10.3); Creatinine, Serum 0.71 mg/dL (0.51-0.95); eGFR CKD-EPI 85.9 (>60)
[2024-03-05] MEDS ORDERED: Regadenoson 0.4 MG/5 ML SYRINGE ONE (08:16)
[2024-03-05] MEDS ORDERED: Aminophylline 25 MG/ML VIAL ONE (08:16)
[2024-03-05] MEDS: Aminophylline 25 MG/ML VIAL IV ONE (10:12)
[2024-03-05] MEDS: Aspirin EC 81 mg TAB.EC (enteric coated) PO SCH (11:36)
== END 2024-03-05 13:26 | disposition home or self-care (01) ==
LOC: EDHOLD 12:09 → ED 12:09 → MEDTELE 20:38
PROVIDERS: ADMIT Internal Medicine; ATTEND Internal Medicine